=== PATIENT | male | born 1940 | race Caucasian/White ===

== ENCOUNTER → 2023-07-23 08:54 | Outpatient (REF) | payer MEDICARE, OTHER, SELFPAY ==
[2023-07-23 13:03] LABS: ALT (SGPT) 28 U/L (0-50); AST (SGOT) 25 U/L (17-59); Albumin 4.4 g/dl (3.5-5.0); Alkaline Phosphatase 61 U/L (38-126); Blood Urea Nitrogen 23 mg/dl (9-20); Calcium 9.4 mg/dl (8.4-10.2); Carbon Dioxide 27 mmol/L (22-30); Chloride 100 mmol/L (98-107); Glucose 252 mg/dl (70-99); HDL Cholesterol 42 mg/dl; LDL Cholesterol, Calculated 31 mg/dl; Potassium 4.3 mmol/L (3.5-5.1); Sodium 135 mmol/L (135-145); Total Cholesterol 89 mg/dl (50-199); Total Protein 7.1 g/dl (6.3-8.2); Triglyceride 84 mg/dl (10-149); Very Low Density Lipoprotein 16 mg/dl (0-30); eGFR > 60.00
[2023-07-23 14:17] LABS: Glycohemoglobin (HgbA1c) 10.3 % (4.0-5.6)
== END ==
LOC: HWLAB 08:54
PROVIDERS: ATTENDING PHYSICIAN Internal Medicine Endocrinology, Diabetes & Metabolism; FAMILY PHYSICIAN Family Medicine; REFERRING PHYSICIAN Internal Medicine Interventional Cardiology
DX: E11.9 Type 2 diabetes mellitus without complications (principal); I48.3 Typical atrial flutter; I25.10 Atherosclerotic heart disease of native coronary artery without angina pectoris
CPT/HCPCS: 36415; 80053; 80061; 83036

== ENCOUNTER → 2023-10-19 08:27 | Outpatient (REF) | payer MEDICARE, OTHER, SELFPAY ==
[2023-10-19 10:29] LABS: Microalbumin, Random Urine 3.8 mg/dl (0.6-1.7); Microalbumin/creatinine Ratio 105.3 mg/g
[2023-10-19 11:02] LABS: ALT (SGPT) 24 U/L (0-50); AST (SGOT) 26 U/L (17-59); Albumin 4.5 g/dl (3.5-5.0); Alkaline Phosphatase 58 U/L (38-126); Blood Urea Nitrogen 25 mg/dl (9-20); Calcium 9.7 mg/dl (8.4-10.2); Carbon Dioxide 28 mmol/L (22-30); Chloride 100 mmol/L (98-107); Glucose 193 mg/dl (70-99); Potassium 4.5 mmol/L (3.5-5.1); Sodium 138 mmol/L (135-145); Total Bilirubin 0.8 mg/dl (0.2-1.3); Total Protein 7.2 g/dl (6.3-8.2); eGFR > 60.00
[2023-10-19 11:26] LABS: Cortisol, Random 16.2 ug/dl
[2023-10-19 12:43] LABS: Glycohemoglobin (HgbA1c) 9.2 % (4.0-5.6)
[2023-10-20 15:08] LABS: IGF-1 Z Score Calculation 1.2; Insulin-like Growth Factor I 164 ng/mL (15-177)
[2023-10-20 23:59] LABS: C-Peptide 1.4 ng/mL (0.5-3.3)
== END ==
LOC: HWLAB 08:27
PROVIDERS: ATTENDING PHYSICIAN Internal Medicine Endocrinology, Diabetes & Metabolism; FAMILY PHYSICIAN Family Medicine
DX: E11.9 Type 2 diabetes mellitus without complications (principal); I10 Essential (primary) hypertension
CPT/HCPCS: 36415; 80053; 82043; 82533; 82570; 83036; 84305; 84681

== ENCOUNTER 2023-12-17 18:08 | Emergency (ER) | payer MEDICARE, OTHER, SELFPAY ==
[2023-12-17 18:12] VITALS: BP 153/80
[2023-12-17 18:26] LABS: % Basophils 0.5 % (0-2); % Eosinophils 6.1 % (0-6); % Immature Granulocytes 0.5 % (0-0.5); % Lymphocytes 13.9 % (20.5-51.1); Absolute Eosinophils 0.5 10^3/uL (0-0.7); Absolute Lymphocytes 1.2 10^3/uL (1.2-3.4); Absolute Neutrophils 5.9 10^3/uL (1.4-6.5); Hematocrit 35.4 % (39.0-52.0); Hemoglobin 11.9 g/dL (13.0-18.0); Mean Corp Hgb Conc. 33.6 g/dL (33.0-37.0); Mean Corpuscular Volume 83.3 fL (80.0-94.0); Nucleated Red Blood Cells % 0 % (-); Platelet Count 160 10^3/uL (130-400); Red Blood Cell Count 4.25 10^6/uL (4.70-6.10); Red Cell Dist. Width 13.5 % (11.5-14.5); White Blood Cell Count 8.7 10^3/uL (4.8-10.8)
[2023-12-17 18:37] LABS: Lactic Acid 2.5 mmol/L (0.7-2.0)
[2023-12-17 18:59] LABS: ALT (SGPT) 22 U/L (0-50); AST (SGOT) 27 U/L (17-59); Albumin 4.1 g/dl (3.5-5.0); Alkaline Phosphatase 75 U/L (38-126); Blood Urea Nitrogen 29 mg/dl (9-20); Calcium 9.4 mg/dl (8.4-10.2); Carbon Dioxide 19 mmol/L (22-30); Chloride 99 mmol/L (98-107); Glucose 153 mg/dl (70-99); Potassium 4.8 mmol/L (3.5-5.1); Sodium 133 mmol/L (135-145); Total Bilirubin 0.6 mg/dl (0.2-1.3); Total Protein 6.9 g/dl (6.3-8.2); eGFR 59.26
[2023-12-17 20:08] VITALS: BP 128/60
[2023-12-17] MEDS: TYLENOL 1000 MG PO (20:14)
[2023-12-17] MEDS: DUONEB 3 ML INH ×3 (20:14→22:09)
--- NOTE | 2023-12-17 20:58 | ED.GENMED ---
History of Present Illness
General
Chief Complaint: Cough
Source: patient and family
Exam Limitations: none
Time Seen by Provider: 12/17/23 19:39
History of Present Illness
History of Present Illness:
83-year-old male who presents with a cough. Today developed fevers. Was diagnosed with COVID last week. Has had several negative tests since Thursday. Patient spiked a fever last night and continued today. Also felt little bit off balance. Went
to the primary care doctor who sent him here for evaluation. Patient states he otherwise feels okay. Has been coughing up just clear sputum. No vomiting.
Past History
Past History
ED Past Medical History: Arrthythmia (A fib), GERD, HTN, Hypercholesterolemia, NIDDM and Other (History of diverticulitis, dysphasia, hemorrhoids, prostatic hypertrophy, arthritis, cataracts, bilateral hearing impairment); Negative CAD
ED Past Surgical History: Appendectomy and Other (Zenker's diverticulum resection, right inguinal hernia repair, hemorrhoidectomy, carpal tunnel repair, bilateral cataract surgery)
Social History
Tobacco: Non-smoker
Alcohol: None
Drug: None
Personal:
Living: with family
Employment: Retired
Family History
Family History: CAD
Phy Exam
Physical Exam
Physical Exam:
CONSTITUTIONAL Patient alert and oriented to person, place and time. Well-appearing. Vital signs reviewed. Febrile
HEAD atraumatic, normocephalic.
EYES eyelids normal to inspection,Extraocular muscles intact, Conjunctiva normal, Sclera normal.
NECK normal range of motion, Trachea midline, no jugular venous distention.
RESPIRATORY CHEST No respiratory distress noted, Chest expansion equal, poor air movement bilaterally.
CARDIOVASCULAR regular rate and rhythm, Heart sounds normal.
ABDOMEN abdomen nontender, Bowel sounds normal. No distention.
BACK normal inspection, no obvious deformities
UPPER EXTREMITY range of motion normal, Motor strength normal, no cyanosis, no edema.
LOWER EXTREMITY range of motion normal, Motor strength normal, no cyanosis, no edema.
NEURO Speech normal, No focal motor deficits, [place] coma scale 15, Memory normal, Cranial Nerves intact to screening exam.
SKIN skin warm, dry, and normal in color.
Course
Orders/Labs/Results
Orders:
Orders
12/17/23 18:13
CXR2 [CR Chest - 2 Views ] Urgent
Comment:
Reason For Exam: cough
12/17/23 18:19
CMP [Comprehensive Metabolic Panel] Urgent
Complete Blood Count/With Diff Urgent
Lactic Acid Urgent
12/17/23 20:08
Acetaminophen [Tylenol] 1,000 mg PO NOW STA
Ipratropium/Albuterol Sulfate [Duoneb] 3 ml INH R NOW STA
12/17/23 20:13
Ipratropium/Albuterol Sulfate [Duoneb] 3 ml .ROUTE .STK-MED ONE
12/17/23 21:53
LevoFLOXacin [Levaquin] 500 mg PO NOW STA
12/17/23 21:55
Ipratropium/Albuterol Sulfate [Duoneb] 3 ml INH R NOW ONE
Ipratropium/Albuterol Sulfate [Duoneb] 3 ml INH R NOW STA
Abnormal Lab Results
12/17/23
18:19
RBC 4.25 L 10^6/uL
(4.70-6.10)
Hgb 11.9 L g/dL
(13.0-18.0)
Hct 35.4 L %
(39.0-52.0)
Absolute Monos (auto) 1.0 H 10^3/uL
(0.1-0.6)
Lymphocytes % 13.9 L %
(20.5-51.1)
Monocytes % 11.0 H %
(1.7-9.3)
Eosinophils % 6.1 H %
(0-6)
Sodium 133 L mmol/L
(135-145)
Carbon Dioxide 19 L mmol/L
(22-30)
BUN 29 H mg/dl
(9-20)
Glucose 153 H mg/dl
(70-99)
Lactic Acid 2.5 H mmol/L
(0.7-2.0)
12/17/23 18:19
12/17/23 18:19
Vital Signs
Initial and Last Documented VS:
Initial Vital Signs
Temp Pulse Resp BP Pulse Ox
100.3 F 104 16 153/80 96
12/17/23 18:12 12/17/23 18:12 12/17/23 18:12 12/17/23 18:12 12/17/23 18:12
Last Documented Vital Signs
Temp Pulse Resp BP Pulse Ox
98.8 F 100 18 141/66 95
12/17/23 21:55 12/17/23 21:55 12/17/23 21:55 12/17/23 21:55 12/17/23 21:55
MDM/Problems Addressed
MDM/Problems Addressed:
Fever, cough
*Radiology
Radiology exam reviewed: radiology read reviewed and all reviewed NAD by ED Provider
*Pulse Oximetry
Patient hypoxic: no
*Critical Care Note
Total Time (30-74mins, 75-104mins- exclusive of procedures): Not Applicable
Data Reviewed
Source: patient and family
Further Testing Considered But Not Given:
Consider blood cultures but do not suspect bacteremia
Patient Management
Escalation/DeEscalation of care consider admission/obs:
Patient does appear well. Feels better after nebs. Pulse ox normal. Family aware to bring him back if any symptoms progress. Question whether he could have early pneumonia will cover with antibiotics given recent COVID infection. Okay for
discharge
ED Attending Note
-
Portions of this chart may have been created with voice recognition software.� Occasional wrong word or��sound alike� substitutions may have occurred due to the inherent limitations of voice recognition software.
Discharge Plan
Departure
Patient Disposition: Home (Routine Discharge)
Date of Disposition: 12/17/23
Time of Disposition: 22:00
Patient with high blood pressure during this ER visit?: No
Discharge Problem:
Fever, Cough
Instructions: Cough, Adult (DC)
Prescriptions:
New
levofloxacin 500 mg tablet
500 mg PO DAILY 7 Days Qty: 7 0RF
ipratropium-albuterol 0.5 mg-3 mg(2.5 mg base)/3 mL solution for nebulization
3 ml inhalation Q4H PRN (Reason: wheezing, cough) Qty: 90 0RF
No Action
ascorbic acid (vitamin C) [Vitamin C] 500 MG tablet
500 mg PO QPM
omeprazole [Prilosec] 10 MG capsule,delayed release(DR/EC)
20 mg PO DAILY
docosahexaenoic acid-epa 1 CAP capsule
1,200 cap PO DAILY@1200
metformin 500 MG tablet extended release 24 hr
1,000 mg PO BID
multivitamin with folic acid [Tab-A-Ena] 1 TABLET tablet
1 tab PO DAILY@1200
calcium carbonate-vitamin D3 1 EACH tablet
1 ea PO DAILY
isosorbide mononitrate 30 MG tablet extended release 24 hr
30 mg PO DAILY
losartan 25 MG tablet
25 mg PO DAILY
cyanocobalamin (vitamin B-12) 1,000 MCG tablet
1,000 mcg PO DAILY Qty: 30 0RF
acetaminophen [Tylenol] 325 mg Tablet
650 mg PO HS
Xarelto 20 mg Tablet
20 mg PO QPM
rosuvastatin 20 mg Tablet
20 mg PO DAILY
Systane (PF) 0.4-0.3 % Dropperette
1 drp OPHTHALMIC (EYE) HS
Rx Instructions:
one drop to both eyes
glimepiride 4 mg Tablet
4 mg PO DAILY
metoprolol succinate 25 mg Tablet Extended Release 24 Hr
25 mg PO DAILY Qty: 30 11RF
Referrals:
Augusto Baltazar MD [Family Provider] -
Activity Restrictions/Additional Instructions:
Please see your doctor in the next 2 to 3 days for follow-up and reevaluation peer return visit for difficulty breathing, changes in mentation, weakness of any kind or any other concerns. Please use Tylenol as discussed euenfl-tph-nuels to keep
fevers under control.
Interventions
Interventions:
*Risk Screen - Suicide Last Done: 12/17/23 21:16
*Neglect/Abuse Screening Last Done: 12/17/23 21:16
ED- Fall Risk Assessment Last Done: 12/17/23 21:16
*ED COVID-19 Vaccine History Last Done: 12/17/23 18:12
ED- Pulmonary Assessment Last Done: 12/17/23 21:16
Discharge Date and Time
Print Language: ANDORRAN
[2023-12-17 21:55] VITALS: BP 141/66
--- NOTE | 2023-12-17 22:00 | EDRN ---
Patient was resting and temp better, Dr. Kelley spoke with family, patient to be discharged home.
[2023-12-17] MEDS: LEVAQUIN 500 MG PO (22:09)
== END 2023-12-17 22:33 | disposition home or self-care (01) ==
LOC: EMR 18:08
PROVIDERS: Emergency Medicine; EMERGENCY PHYSICIAN Emergency Medicine; FAMILY PHYSICIAN Family Medicine
DX: R05.9 Cough, unspecified (principal); R50.9 Fever, unspecified; I48.91 Unspecified atrial fibrillation; K21.9 Gastro-esophageal reflux disease without esophagitis; I10 Essential (primary) hypertension; E78.00 Pure hypercholesterolemia, unspecified; E11.36 Type 2 diabetes mellitus with diabetic cataract; N40.0 Benign prostatic hyperplasia without lower urinary tract symptoms; Z82.49 Family history of ischemic heart disease and other diseases of the circulatory system; Z87.19 Personal history of other diseases of the digestive system; Z90.49 Acquired absence of other specified parts of digestive tract
CPT/HCPCS: 99284; 94640; 71046; 80053; 83605; 85025

== ENCOUNTER → 2023-12-24 15:00 | Outpatient (REF) | payer MEDICARE, OTHER, SELFPAY | LOC: HWRCS 15:00 | PROVIDERS: ATTENDING PHYSICIAN Internal Medicine Interventional Cardiology; FAMILY PHYSICIAN Family Medicine | DX: I35.0 Nonrheumatic aortic (valve) stenosis (principal) | CPT/HCPCS: 93306 ==

== ENCOUNTER 2024-02-09 11:31 | Emergency (ER) | payer MEDICARE, OTHER, SELFPAY ==
[2024-02-09] VITALS (29 sets, daily range): BP systolic 95–129; BP diastolic 60–92; BMI 24.3
--- NOTE | 2024-02-09 11:44 | ED.GENMED ---
History of Present Illness
<Abraham Kilgore PA-C - Last Filed: 02/09/24 14:39>
General
Chief Complaint: Dizziness
Source: patient
Exam Limitations: none
Time Seen by Provider: 02/09/24 11:38
History of Present Illness
History of Present Illness:
83-year-old male presents via EMS from home with complaints of feeling weak and tired. When asked how long has been going he is weeks. He is unsure why his called the ambulance today. He denies chest pain abdominal pain or shortness of
breath. He does have a history of atrial fibrillation. Medicine with does document Xarelto. He was on metoprolol 1 point but this was stopped about a month ago through the family doctor. No other complaints at this time
Past History
<Abraham Kilgore PA-C - Last Filed: 02/09/24 14:39>
Past History
ED Past Medical History: Arrthythmia (A fib), GERD, HTN, Hypercholesterolemia, NIDDM and Other (History of diverticulitis, dysphasia, hemorrhoids, prostatic hypertrophy, arthritis, cataracts, bilateral hearing impairment); Negative CAD
ED Past Surgical History: Appendectomy and Other (Zenker's diverticulum resection, right inguinal hernia repair, hemorrhoidectomy, carpal tunnel repair, bilateral cataract surgery)
Social History
Tobacco: Non-smoker
Alcohol: None
Drug: None
Personal:
Living: with family
Employment: Retired
Family History
Family History: CAD
Phy Exam
<NEELIMA Hall Last Filed: 02/09/24 14:39>
Physical Exam
Physical Exam:
General: Well-appearing male no acute respiratory distress
HEENT: Normocephalic atraumatic
Heart: Tachycardic and regular
Lungs: Clear no obvious wheeze
Extremities: No cyanosis or edema
Skin: Warm no rash
Course
<Abraham Kilgore PA-C - Last Filed: 02/09/24 14:39>
Orders/Labs/Results
Orders:
Orders
02/09/24 11:34
EKG [Electrocardiogram (*1)] Urgent
Reason for Study: Vertigo / Dizzy
02/09/24 11:35
EKG- Treatment ONCE
02/09/24 11:36
Complete Blood Count/With Diff Urgent
02/09/24 11:44
Diltiazem HCl [Cardizem] 10 mg IV NOW STA
02/09/24 11:45
Diltiazem 125 mg/125 ml Nss [Cardizem] 125 mg in 125 ml IV PER PROTOCOL
Initial dose in mg/hr, then titrate:: 5
Titrate to keep:: Heart rate 80-100 bpm
Titrate by mg/hr:: 5 mg/hr
Frequency of titrations (minutes):: 15
Maximum dose in mg/hr:: 15
02/09/24 11:46
CR Chest Portable - 1 View Urgent
Comment:
Reason For Exam: fatigue
Reason Study Needs to be Portable: Patient Unstable
02/09/24 11:47
Add On- LAB Urgent
Tests Added?: tsh reflex to free t4
02/09/24 12:32
Comprehensive Metabolic Panel Urgent
TSH Reflex To Free T4 Urgent
Comment: ADD
Urinalysis Reflex To Culture Urgent
Date Specimen was Collected: 02/09/24
Time Specimen was Collected: 12:31
02/09/24 12:40
Propofol [Diprivan] 20 ml .ROUTE .STK-MED
02/09/24 12:59
EKG [Electrocardiogram (*1)] Urgent
Reason for Study: Other
Other Reason for Exam: post cardioversion
02/09/24 13:00
EKG- Treatment ONCE
Abnormal Lab Results
02/09/24 02/09/24
11:36 12:32
RBC 4.13 L 10^6/uL
(4.70-6.10)
Hgb 11.5 L g/dL
(13.0-18.0)
Hct 34.9 L %
(39.0-52.0)
RDW 19.2 H %
(11.5-14.5)
MPV 12.0 H fL
(7.4-10.4)
Abs Immat Gran (auto) 0.1 H 10^3/uL
(0-0.05)
Absolute Lymphs (auto) 1.1 L 10^3/uL
(1.2-3.4)
Absolute Monos (auto) 0.7 H 10^3/uL
(0.1-0.6)
Absolute Eos (auto) 0.9 H 10^3/uL
(0-0.7)
Immature Gran % 0.7 H %
(0-0.5)
Lymphocytes % 14.4 L %
(20.5-51.1)
Eosinophils % 12.4 H %
(0-6)
BUN 21 H mg/dl
(9-20)
Glucose 280 H mg/dl
(70-99)
Urine Glucose 3+ A
(Negative)
02/09/24 11:36
02/09/24 12:32
Vital Signs
Initial and Last Documented VS:
Initial Vital Signs
Pulse Ox
92
02/09/24 11:40
Last Documented Vital Signs
Temp Pulse Resp BP Pulse Ox
98.1 F 80 16 119/70 95
02/09/24 13:22 02/09/24 14:07 02/09/24 14:07 02/09/24 14:07 02/09/24 14:07
<Lionel Champion MD - Last Filed: 02/09/24 13:38>
Orders/Labs/Results
Orders:
Orders
02/09/24 11:34
EKG [Electrocardiogram (*1)] Urgent
Reason for Study: Vertigo / Dizzy
02/09/24 11:35
EKG- Treatment ONCE
02/09/24 11:36
Complete Blood Count/With Diff Urgent
02/09/24 11:44
Diltiazem HCl [Cardizem] 10 mg IV NOW STA
02/09/24 11:45
Diltiazem 125 mg/125 ml Nss [Cardizem] 125 mg in 125 ml IV PER PROTOCOL
Initial dose in mg/hr, then titrate:: 5
Titrate to keep:: Heart rate 80-100 bpm
Titrate by mg/hr:: 5 mg/hr
Frequency of titrations (minutes):: 15
Maximum dose in mg/hr:: 15
02/09/24 11:46
CR Chest Portable - 1 View Urgent
Comment:
Reason For Exam: fatigue
Reason Study Needs to be Portable: Patient Unstable
02/09/24 11:47
Add On- LAB Urgent
Tests Added?: tsh reflex to free t4
02/09/24 12:32
Comprehensive Metabolic Panel Urgent
TSH Reflex To Free T4 Urgent
Comment: ADD
Urinalysis Reflex To Culture Urgent
Date Specimen was Collected: 02/09/24
Time Specimen was Collected: 12:31
02/09/24 12:40
Propofol [Diprivan] 20 ml .ROUTE .STK-MED
02/09/24 12:59
EKG [Electrocardiogram (*1)] Urgent
Reason for Study: Other
Other Reason for Exam: post cardioversion
02/09/24 13:00
EKG- Treatment ONCE
Abnormal Lab Results
02/09/24 02/09/24
11:36 12:32
RBC 4.13 L 10^6/uL
(4.70-6.10)
Hgb 11.5 L g/dL
(13.0-18.0)
Hct 34.9 L %
(39.0-52.0)
RDW 19.2 H %
(11.5-14.5)
MPV 12.0 H fL
(7.4-10.4)
Abs Immat Gran (auto) 0.1 H 10^3/uL
(0-0.05)
Absolute Lymphs (auto) 1.1 L 10^3/uL
(1.2-3.4)
Absolute Monos (auto) 0.7 H 10^3/uL
(0.1-0.6)
Absolute Eos (auto) 0.9 H 10^3/uL
(0-0.7)
Immature Gran % 0.7 H %
(0-0.5)
Lymphocytes % 14.4 L %
(20.5-51.1)
Eosinophils % 12.4 H %
(0-6)
BUN 21 H mg/dl
(9-20)
Glucose 280 H mg/dl
(70-99)
Urine Glucose 3+ A
(Negative)
02/09/24 11:36
02/09/24 12:32
Vital Signs
Initial and Last Documented VS:
Initial Vital Signs
Pulse Ox
92
02/09/24 11:40
Last Documented Vital Signs
Temp Pulse Resp BP Pulse Ox
98.1 F 80 16 119/70 95
02/09/24 13:22 02/09/24 14:07 02/09/24 14:07 02/09/24 14:07 02/09/24 14:07
Procedures
<Abraham Kilgore PA-C - Last Filed: 02/09/24 14:39>
Moderate Sedation
ASA Risk Score: Class II
Chart and allergies reviewed: Yes
Consent for anesthesia obtained: Yes
Time out completed (validating right patient & procedure): Yes
Moderate Sedation Start Time(when first medication is given): 12:57
History of difficult intubation: No
Airway free of obstruction: Yes
Patient has a gag reflex: Yes
Patient is able to open mouth: Yes
Patient has no dentures: Yes
Patient has no loose teeth: Yes
Medication administered by Provider during Moderate Sedation: IV Propofol (mg)
Total dose administered: 40
Time drug administered: 12:57
Moderate Sedation Procedure End Time: 13:08
<Abraham Kilgore PA-C - Last Filed: 02/09/24 14:39>
MDM/Problems Addressed
Differential Diagnosis Includes:
Weakness and generalized fatigue. No localizing findings on exam other than atrial fibrillation. EKG shows A-fib with a heart rate of 147. His beta-malcom was recently discontinued. Will attempt rate control initially with Cardizem bolus and
infusion
Check labs.
<Abraham Kilgore PA-C - Last Filed: 02/09/24 14:39>
*Critical Care Note
Total Time (30-74mins, 75-104mins- exclusive of procedures): Not Applicable
<Abraham Kilgore PA-C - Last Filed: 02/09/24 14:39>
Update Note
Update Note:
Spoke with patient's son who provided more history. He believes that his father became more weak within the past 2 days he was doing well over the weekend. He has been taking his Xarelto without missing any doses. Discussed findings with
emergency room attending as well as reach out to cardiology for recommendation. Patient may be a candidate for cardioversion
Cardiology did recommend cardioversion. Written consent obtained. Sedation performed by emergency room attending. Patient was given 40 mg of propofol and cardioverted with 200 J. 1 attempt was required to return the patient back to a sinus
rhythm. He recovered well from anesthesia and was back on his feet. Family states that he is back to himself. No significant abnormalities in the blood work noted otherwise. Stable for discharge
ED Attending Note
<Abraham Kilgore PA-C - Last Filed: 02/09/24 14:39>
-
Portions of this chart may have been created with voice recognition software.� Occasional wrong word or��sound alike� substitutions may have occurred due to the inherent limitations of voice recognition software.
<Lionel Champion MD - Last Filed: 02/09/24 13:38>
ED Attending Note
Patient seen and examined by attending physician: Yes
ED Attending Note:
Physical Exam
General: no apparent distress, not acutely ill. afebrile
Head: nc/at. eomi
Neck: supple. no meningeal signs.
Heart: irregularly irregular, tachycardic,
Lungs: no acute respiratory distress. clear bilaterally
Abdomen: normal bowel sounds. not tender.
Neuro: alert and oriented. no focal neurological deficits
Skin: no rash
Psychiatric: well kept. interactive and cooperative
Extremities: no edema. no calf tenderness.
History and exam consistent with likely symptoms related to rapid atrial fibrillation. Patient initially started on Cardizem bolus and infusion, without jewish of normal sinus rhythm. After discussion with on-call cardiology, Dr. Bustamante
Cinthya, decision made to perform cardioversion in ED. Procedural consent on the chart.
Cardioversion successful, confirmed via repeat EKG.
Patient evaluated at bedside by Dr. Mendes, cardiology afterwards.
Discharge Plan
Departure
Patient Disposition: Home (Routine Discharge)
Date of Disposition: 02/09/24
Time of Disposition: 14:38
Patient with high blood pressure during this ER visit?: No
Discharge Problem:
Atrial flutter with rapid ventricular response
Instructions: Atrial fibrillation, MODERATE SEDATION ADULT
Prescriptions:
No Action
ascorbic acid (vitamin C) [Vitamin C] 500 MG tablet
500 mg PO QPM
omeprazole [Prilosec] 10 MG capsule,delayed release(DR/EC)
20 mg PO DAILY
docosahexaenoic acid-epa 1 CAP capsule
1,200 cap PO DAILY@1200
metformin 500 MG tablet extended release 24 hr
1,000 mg PO BID
multivitamin with folic acid [Tab-A-Ena] 1 TABLET tablet
1 tab PO DAILY@1200
calcium carbonate-vitamin D3 1 EACH tablet
1 ea PO DAILY
isosorbide mononitrate 30 MG tablet extended release 24 hr
30 mg PO DAILY
cyanocobalamin (vitamin B-12) 1,000 MCG tablet
1,000 mcg PO DAILY Qty: 30 0RF
acetaminophen [Tylenol] 325 mg Tablet
650 mg PO HS
Xarelto 20 mg Tablet
20 mg PO QPM
rosuvastatin 20 mg Tablet
20 mg PO DAILY
Systane (PF) 0.4-0.3 % Dropperette
1 drp OPHTHALMIC (EYE) HS
Rx Instructions:
one drop to both eyes
ipratropium-albuterol 0.5 mg-3 mg(2.5 mg base)/3 mL solution for nebulization
3 ml inhalation Q4H PRN (Reason: wheezing, cough) Qty: 90 0RF
memantine 10 mg Tablet
10 mg PO BID
Novolin 70-30 FlexPen U-100 100 unit/mL (70-30) Insulin Pen
30 unit SC DAILY
Referrals:
Augusto Baltazar MD [Family Provider] -
Activity Restrictions/Additional Instructions:
Please continue current medication regimen. Return here for worsening symptoms otherwise follow-up with your manager library
Interventions
Interventions:
*Risk Screen - Suicide Last Done: 02/09/24 11:40
*General Assessment Last Done: 02/09/24 11:40
*Neglect/Abuse Screening Last Done: 02/09/24 11:40
ED- Fall Risk Assessment Last Done: 02/09/24 11:40
*ED COVID-19 Vaccine History Last Done: 02/09/24 11:40
ED- Cardiac Assessment Last Done: 02/09/24 11:40
ED- Neurological Assessment Last Done: 02/09/24 11:40
ED Swallowing Screen Last Done: 02/09/24 11:40
Discharge Date and Time
Print Language: FINNISH
[2024-02-09] MEDS: CARDIZEM 10 MG IV (11:49)
[2024-02-09] MEDS: CARDIZEM 125 IV (11:49)
[2024-02-09 11:53] LABS: % Basophils 0.5 % (0-2); % Eosinophils 12.4 % (0-6); % Immature Granulocytes 0.7 % (0-0.5); % Lymphocytes 14.4 % (20.5-51.1); % Monocytes 8.8 % (1.7-9.3); % Neutrophils 63.2 % (42.2-75.2); Absolute Eosinophils 0.9 10^3/uL (0-0.7); Absolute Immature Granulocytes 0.1 10^3/uL (0-0.05); Absolute Lymphocytes 1.1 10^3/uL (1.2-3.4); Absolute Monocytes 0.7 10^3/uL (0.1-0.6); Absolute Neutrophils 4.7 10^3/uL (1.4-6.5); Hematocrit 34.9 % (39.0-52.0); Hemoglobin 11.5 g/dL (13.0-18.0); Mean Corpuscular Hgb 27.8 pg (27.0-31.0); Mean Corpuscular Volume 84.5 fL (80.0-94.0); Nucleated Red Blood Cells % 0 % (-); Platelet Count 161 10^3/uL (130-400); Red Blood Cell Count 4.13 10^6/uL (4.70-6.10); Red Cell Dist. Width 19.2 % (11.5-14.5); White Blood Cell Count 7.5 10^3/uL (4.8-10.8)
--- NOTE | 2024-02-09 11:59 | EDRN ---
cardizem bolus administered and gtt initiated per Zohaib Kilgore's orders, the pt is resting in stretcher in the lowest position, side rails up x2, call watkins within reach, HOB elevated, the pt is in Afib in the 130's currently, last BP 116/70 (83),
RA Sp02 92-96%, no s/s of distress currently, the pt stated that he is angry that he is here, this RN attempted to calm the pt down, will continue to monitor the pt closely
--- NOTE | 2024-02-09 12:54 | EDRN ---
cardizem gtt stopped per Dr. Champion and Zohaib WELLS, the pt was set up for a cardioversion
[2024-02-09 12:55] LABS: Urine Albumin Negative (Neg - Trace); Urine Bilirubin Negative (Negative); Urine Character Clear (Clear); Urine Color Yellow; Urine Glucose 3+ (Negative); Urine Ketone Negative (Negative); Urine Leukocyte Negative (Negative); Urine Nitrite Negative (Negative); Urine Occult Blood Negative (Negative); Urine Urobilinogen Negative (Neg - 1+)
[2024-02-09 13:13] LABS: ALT (SGPT) 18 U/L (0-50); AST (SGOT) 22 U/L (17-59); Albumin 3.7 g/dl (3.5-5.0); Alkaline Phosphatase 56 U/L (38-126); Blood Urea Nitrogen 21 mg/dl (9-20); Calcium 9.1 mg/dl (8.4-10.2); Carbon Dioxide 29 mmol/L (22-30); Chloride 100 mmol/L (98-107); Estimated Creatinine Clearance 66 ml/min; Glucose 280 mg/dl (70-99); Potassium 4.6 mmol/L (3.5-5.1); Sodium 136 mmol/L (135-145); Total Bilirubin 0.7 mg/dl (0.2-1.3); Total Protein 6.3 g/dl (6.3-8.2); eGFR > 60.00
--- NOTE | 2024-02-09 13:29 | EDRN ---
the pt is resting in stretcher in the lowest position, side rails up x2, call watkins within reach, HOB elevated, VS WNL, no s/s of distress, the pt is being monitored by this RN post conscious sedation post cardioversion, the pts is currently at
the pts bedside, the pts son was updated, will continue to monitor the pt closely
--- NOTE | 2024-02-09 13:35 | EDRN ---
Dr. Mendes currently at the pts bedside
[2024-02-09 13:44] LABS: TSH Reflex To Free T4 1.64 uIU/ml (0.47-4.68)
--- NOTE | 2024-02-09 14:45 | EDRN ---
the pt was able to eat and drink with no c/o N/V, the pt was able to stand from a sitting position unaided and the pt was able to ambulate to the bathroom without assistance, discharge instructions were given to the pt, the pts , and the pts
daughter in law, the pt was taken to his daughter in laws car via w/c
== END 2024-02-09 14:56 | disposition home or self-care (01) ==
LOC: EMR 11:31
PROVIDERS: Physician Assistant; EMERGENCY PHYSICIAN Emergency Medicine; FAMILY PHYSICIAN Family Medicine
DX: R53.1 Weakness (principal); R53.83 Other fatigue; I48.92 Unspecified atrial flutter; I10 Essential (primary) hypertension; I48.91 Unspecified atrial fibrillation; E78.00 Pure hypercholesterolemia, unspecified; E11.36 Type 2 diabetes mellitus with diabetic cataract; K21.9 Gastro-esophageal reflux disease without esophagitis; N40.0 Benign prostatic hyperplasia without lower urinary tract symptoms; M19.90 Unspecified osteoarthritis, unspecified site; K57.92 Diverticulitis of intestine, part unspecified, without perforation or abscess without bleeding; H91.90 Unspecified hearing loss, unspecified ear; Z79.01 Long term (current) use of anticoagulants; Z98.0 Intestinal bypass and anastomosis status; Z91.018 Allergy to other foods; Z91.010 Allergy to peanuts; Z91.048 Other nonmedicinal substance allergy status
CPT/HCPCS: 92960; 99285; 96365; 99152; 71045; 80053; 81003; 84443; 85025; 93005

== ENCOUNTER → 2024-02-29 08:28 | Outpatient (REF) | payer MEDICARE, OTHER, SELFPAY ==
[2024-02-29 10:33] LABS: Glycohemoglobin (HgbA1c) 7.6 % (4.0-5.6)
[2024-02-29 11:25] LABS: ALT (SGPT) 25 U/L (0-50); AST (SGOT) 23 U/L (17-59); Albumin 4.1 g/dl (3.5-5.0); Alkaline Phosphatase 65 U/L (38-126); Blood Urea Nitrogen 17 mg/dl (9-20); Calcium 9.2 mg/dl (8.4-10.2); Carbon Dioxide 22 mmol/L (22-30); Chloride 103 mmol/L (98-107); Glucose 225 mg/dl (70-99); Potassium 4.4 mmol/L (3.5-5.1); Sodium 139 mmol/L (135-145); Total Bilirubin 0.9 mg/dl (0.2-1.3); Total Protein 6.6 g/dl (6.3-8.2); eGFR > 60.00
== END ==
LOC: REG 08:28
PROVIDERS: ATTENDING PHYSICIAN Internal Medicine Endocrinology, Diabetes & Metabolism; FAMILY PHYSICIAN Family Medicine
DX: E11.9 Type 2 diabetes mellitus without complications (principal)
CPT/HCPCS: 36415; 80053; 82943; 83036

== ENCOUNTER → 2024-06-21 10:23 | Outpatient (REF) | payer MEDICARE, OTHER, SELFPAY ==
[2024-06-21 13:17] LABS: ALT (SGPT) 15 U/L (0-50); AST (SGOT) 21 U/L (17-59); Albumin 4.2 g/dl (3.5-5.0); Alkaline Phosphatase 58 U/L (38-126); Blood Urea Nitrogen 21 mg/dl (9-20); Calcium 9.2 mg/dl (8.4-10.2); Carbon Dioxide 29 mmol/L (22-30); Chloride 97 mmol/L (98-107); Glucose 203 mg/dl (70-99); Potassium 4.1 mmol/L (3.5-5.1); Sodium 135 mmol/L (135-145); Total Bilirubin 0.9 mg/dl (0.2-1.3); Total Protein 6.8 g/dl (6.3-8.2); eGFR > 60.00
== END ==
LOC: OLABWIL 10:23
PROVIDERS: ATTENDING PHYSICIAN Internal Medicine Endocrinology, Diabetes & Metabolism
DX: E11.65 Type 2 diabetes mellitus with hyperglycemia (principal)
CPT/HCPCS: 36415; 80053; 83036

== ENCOUNTER → 2024-12-14 15:41 | Outpatient (REF) | payer MEDICARE, OTHER, SELFPAY | LOC: HWRAD 15:41 | PROVIDERS: ATTENDING PHYSICIAN Family Medicine | DX: R05.1 Acute cough (principal) | CPT/HCPCS: 71046 ==

== ENCOUNTER 2025-03-12 16:23 | Inpatient (IN) | payer MEDICARE, OTHER, SELFPAY ==
[2025-03-12] VITALS (18 sets, daily range): BP systolic 107–162; BP diastolic 72–113; BMI 26.5; BMI 25.2
[2025-03-12 12:05] LABS: Hematocrit 35.4 % (39.0-52.0); Hemoglobin 11.4 g/dL (13.0-18.0); Mean Corp Hgb Conc. 32.2 g/dL (33.0-37.0); Mean Corpuscular Volume 81.8 fL (80.0-94.0); Nucleated Red Blood Cells % 0 % (-); Platelet Count 175 10^3/uL (130-400); Red Cell Dist. Width 18.7 % (11.5-14.5)
[2025-03-12 12:25] LABS: COVID-19 Antigen Negative (Negative)
--- NOTE | 2025-03-12 12:41 | ED.GENMED ---
History of Present Illness
General
Chief Complaint: Weakness
Source: patient and family (Son)
Time Seen by Provider: 03/12/25 11:22
History of Present Illness
History of Present Illness:
History from patient and son. Son adds patient was in his normal state of health. Lives independently but with assistance. Was doing well yesterday. Found on the floor this morning. Ambulance was called which assisted him back to bed. On son's
arrival patient appeared unusually weak and not himself. Patient does not had any specific complaints except for some mild cough. No chest pain denies shortness of breath no fever no urinary symptoms.
Past History
Past History
ED Past Medical History: Arrthythmia (A fib), GERD, HTN, Hypercholesterolemia, NIDDM and Other (History of diverticulitis, dysphasia, hemorrhoids, prostatic hypertrophy, arthritis, cataracts, bilateral hearing impairment); Negative CAD
ED Past Surgical History: Appendectomy and Other (Zenker's diverticulum resection, right inguinal hernia repair, hemorrhoidectomy, carpal tunnel repair, bilateral cataract surgery)
Social History
Tobacco: Non-smoker
Alcohol: None
Drug: None
Personal:
Living: with family
Employment: Retired
Family History
Family History: CAD
Review of Systems
Review of Systems
All Other Systems: Not applicable
Constitutional: Denies fever
Cardiac: Denies chest pain or syncope
ABD/GI: Denies abdominal pain
Phy Exam
Physical Exam
Physical Exam:
GENERAL: Elderly and frail. Alert. Mildly hypoxic on room air. Although no respiratory distress. Normocephalic atraumatic
EYE: Orbits normal.
NECK: Supple, no significant adenopathy.
ENT: Pharynx without erythema
CARDIAC: Irregular irregular. Tachycardic
LUNGS: No respiratory distress however low pulse ox and rales in the left base
ABDOMEN: Soft, without focal tenderness or distention
NEUROLOGICAL: Alert and oriented , grossly non-focal
SKIN: Warm and dry, no rash or lesion, no discoloration, skin intact.
MUSCULOSKELETAL: No edema,no deformity.Good color
PSYCH: Normal and appropriate interaction.
Course
Orders/Labs/Results
Orders:
Orders
03/12/25 11:21
Electrocardiogram (*1) Urgent
Reason for Study: Atrial Fibrillation
EKG- Treatment ONCE
03/12/25 11:36
IV Insert/Care/Rem.- Treatment PRN
Urinalysis Reflex To Culture Urgent
Date Specimen was Collected: 03/12/25
Time Specimen was Collected: 13:49
Urine Microscopic Reflex Cult Urgent
Urine Culture Urgent
DARRELL Source: U
Specimen Description:
Date Specimen was Collected: 03/12/25
Time Specimen was Collected: 13:49
Pulse Ox/cont/shift [RESP] Stat
Quantity: 1
03/12/25 11:37
Cardiac Monitoring- Treatment ONCE
CR Chest - 2 Views Urgent
Comment:
Reason For Exam: Weak/rales left base
03/12/25 11:53
COVID-19 Antigen Urgent
Source: Nasal Swab
Complete Blood Count/With Diff Urgent
Comprehensive Metabolic Panel Urgent
Creatine Phosphokinase Urgent
Comment: ADD ON
NT-proBNP Urgent
Troponin I Urgent
Influenza A+B Rapid Molecular Urgent
DARRELL Source: Nasal Swab
Specimen Description:
03/12/25 12:12
CT Head W/o Iv Contrast Urgent
Comment:
Reason For Exam: Fall/anticoagulated
Diltiazem 125 mg/125 ml Nss [Cardizem] 125 mg in 125 ml IV NOW
Initial dose in mg/hr, then titrate:: 5
Titrate to keep:: Heart rate 80-100 bpm
Titrate by mg/hr:: 5 mg/hr
Frequency of titrations (minutes):: 15
Maximum dose in mg/hr:: 15
Diltiazem HCl [Cardizem] 5 mg IV NOW STA
03/12/25 12:53
Lactate Level [Lactic Acid] Urgent
03/12/25 12:54
Blood Culture Q30M
DARRELL Source: Blood/Venous
Specimen Description:
Blood Culture Q30M
DARRELL Source: Blood/Venous
Specimen Description:
03/12/25 14:10
Add On- LAB Urgent
Tests Added?: cpk
03/12/25 14:38
Cefepime HCl [Maxipime] 2,000 mg IV NOW STA
Abnormal Lab Results
03/12/25 03/12/25 03/12/25
11:36 11:53 12:53
WBC 19.3 H 10^3/uL
(4.8-10.8)
RBC 4.33 L 10^6/uL
(4.70-6.10)
Hgb 11.4 L g/dL
(13.0-18.0)
Hct 35.4 L %
(39.0-52.0)
MCH 26.3 L pg
(27.0-31.0)
MCHC 32.2 L g/dL
(33.0-37.0)
RDW 18.7 H %
(11.5-14.5)
Abs Immat Gran (auto) 0.3 H 10^3/uL
(0-0.05)
Absolute Neuts (auto) 17.8 H 10^3/uL
(1.4-6.5)
Absolute Lymphs (auto) 0.4 L 10^3/uL
(1.2-3.4)
Absolute Monos (auto) 0.7 H 10^3/uL
(0.1-0.6)
Immature Gran % 1.6 H %
(0-0.5)
Neutrophils % 92.1 H %
(42.2-75.2)
Lymphocytes % 2.2 L %
(20.5-51.1)
Carbon Dioxide 21 L mmol/L
(22-30)
Glucose 276 H mg/dl
(70-99)
Lactic Acid 3.3 H mmol/L
(0.7-2.0)
Total Bilirubin 1.8 H mg/dl
(0.2-1.3)
Troponin I 0.048 H* ng/ml
Leukocyte Esterase Rfl 1+ A
(Negative)
Urine Bacteria (Reflex) Moderate A
(Negative)
Urine Glucose 2+ A
(Negative)
Urine Albumin (Reflex) 2+ A
(Neg - Trace)
03/12/25 11:53
03/12/25 11:53
Vital Signs
Initial and Last Documented VS:
Initial Vital Signs
Temp Pulse Resp BP Pulse Ox
98.7 F 144 16 139/86 89
03/12/25 11:16 03/12/25 11:16 03/12/25 11:16 03/12/25 11:16 03/12/25 11:16
Last Documented Vital Signs
Temp Pulse Resp BP Pulse Ox
98.7 F 99 26 136/99 93
03/12/25 11:16 03/12/25 14:46 03/12/25 14:46 03/12/25 14:46 03/12/25 14:46
MDM/Problems Addressed
Differential Diagnosis Includes:
Patient weak, A-fib RVR, leukocytosis. Infection with secondary RVR versus primary or RVR. Also consider heart failure. Awaiting chest x-ray head CT urinalysis. Discussed with cardiology. Will start gentle rate control. Clearly warrants
admission
*Radiology
Radiology exam reviewed: preliminary read by ED provider (Left perihilar pneumonia) and radiology read reviewed (Bilateral pneumonia versus heart failure)
*Pulse Oximetry
SaO2: 89
Oxygen Mode of Delivery: Room air
Patient hypoxic: yes
*Super[employer] Interpretation
Rate: tachycardiac
Interpretation: abnormal
Heart Rate: 142
Rhythm: a-fib
*Critical Care Note
Total Time (30-74mins, 75-104mins- exclusive of procedures): 40
Data Reviewed
Review of Other/Old Records Reveals: Labs, Records, Radiology Studies and Testing
Update Note
Update Note:
Multiple rechecks of this patient. Ammonia versus heart failure with A-fib RVR versus both. Antibiotics given. Rate control given. Will hold on diuretics at this time. Discussed with family. Discussed with cardiology earlier
ED Attending Note
-
Portions of this chart may have been created with voice recognition software.� Occasional wrong word or��sound alike� substitutions may have occurred due to the inherent limitations of voice recognition software.
Discharge Plan
Departure
Patient Disposition: Admit
Date of Disposition: 03/12/25
Time of Disposition: 14:40
Presentation/result/management discussed w/ accepting MD/DO: Hospitalist
Discharge Problem:
Atrial fibrillation/RVR, Pneumonia, CHF
Prescriptions:
No Action
ascorbic acid (vitamin C) [Vitamin C] 500 MG tablet
500 mg PO QPM
omeprazole [Prilosec] 10 MG capsule,delayed release(DR/EC)
20 mg PO DAILY
docosahexaenoic acid-epa 1 CAP capsule
1,200 cap PO DAILY@1200
metformin 500 MG tablet extended release 24 hr
1,000 mg PO BID
multivitamin with folic acid [Tab-A-Ena] 1 TABLET tablet
1 tab PO DAILY@1200
calcium carbonate-vitamin D3 1 EACH tablet
1 ea PO DAILY
isosorbide mononitrate 30 MG tablet extended release 24 hr
30 mg PO DAILY
cyanocobalamin (vitamin B-12) 1,000 MCG tablet
1,000 mcg PO DAILY Qty: 30 0RF
acetaminophen [Tylenol] 325 mg Tablet
650 mg PO HS
Xarelto 20 mg Tablet
20 mg PO QPM
rosuvastatin 20 mg Tablet
20 mg PO DAILY
Systane (PF) 0.4-0.3 % Dropperette
1 drp OPHTHALMIC (EYE) HS
Rx Instructions:
one drop to both eyes
ipratropium-albuterol 0.5 mg-3 mg(2.5 mg base)/3 mL solution for nebulization
3 ml inhalation Q4H PRN (Reason: wheezing, cough) Qty: 90 0RF
memantine 10 mg Tablet
10 mg PO BID
Novolin 70-30 FlexPen U-100 100 unit/mL (70-30) Insulin Pen
30 unit SC DAILY
triamcinolone acetonide 0.5 % ointment
1 applic topical BID Qty: 90 0RF
Referrals:
Priscilla Capellan MD [Family Provider, Family Practice]
Interventions
Interventions:
*Risk Screen - Suicide Last Done: 03/12/25 12:00
*General Assessment Last Done: 03/12/25 14:41
*Neglect/Abuse Screening Last Done: 03/12/25 14:41
*ED COVID-19 Vaccine History Last Done: 03/12/25 14:58
*ED Influenza Vaccine History Last Done: 03/12/25 14:58
ED- Cardiac Assessment Last Done: 03/12/25 14:41
ED- Neurological Assessment Last Done: 03/12/25 14:41
ED- Pulmonary Assessment Last Done: 03/12/25 14:41
Discharge Date and Time
Print Language: [place]LAND[place]
[2025-03-12 12:42] LABS: AST (SGOT) 27 U/L (17-59); Albumin 4.1 g/dl (3.5-5.0); Alkaline Phosphatase 54 U/L (38-126); Blood Urea Nitrogen 16 mg/dl (9-20); Calcium 9.1 mg/dl (8.4-10.2); Carbon Dioxide 21 mmol/L (22-30); Chloride 104 mmol/L (98-107); Glucose 276 mg/dl (70-99); Potassium 4.3 mmol/L (3.5-5.1); Sodium 136 mmol/L (135-145); Total Protein 6.9 g/dl (6.3-8.2); eGFR > 60.00
[2025-03-12 12:51] LABS: ALT (SGPT) 26 U/L (0-50); Troponin I 0.048 ng/ml
[2025-03-12] MEDS: CARDIZEM 5 MG IV (13:16)
[2025-03-12] MEDS: CARDIZEM 125 IV (13:16)
[2025-03-12 14:21] LABS: Urine Character Slightly Cloudy (Clear)
[2025-03-12 14:43] LABS: Urine Red Blood Cell 0-2 /HPF (0-2); Urine Squamous Cell 0-2 /LPF (Few)
--- NOTE | 2025-03-12 14:57 | HPS.HSE ---
Addendum entered and electronically signed by Phuong Lyle MD 03/12/25 16:19:
This is an addendum to H&P written by Nelda Amato on 03/12/2025. �Patient seen and examined independently with MANUFACTURING ANALYST.
85-year-old male past medical history of atrial fibrillation on Xarelto, CAD, aortic stenosis status post TAVR 2 years ago, CVA, hypertension, hypercholesteremia, GERD, diabetes, BPH, arthritis, bilateral hearing impairment, cataracts, Zenker's
diverticulum, hemorrhoids, presenting with 1 week of cough with blood-tinged sputum. �Today found on the floor unknown duration with weakness and somnolence.
Hypoxic to 89% requiring 2 L oxygen. �Found to be in atrial fibrillation with RVR with heart rate of 146. �Blood pressure normal.
Labs show leukocytosis of 19. �Stable anemia 11. �Lactic acid 3.3. �Troponin 0.048. �Cardiac BNP of 6300. �Blood sugar of 276. �COVID and flu negative.
Chest x-ray shows severe perihilar ground glass opacities in the left midlung and moderate infrahilar ground glass opacity in the right lung B acute alveolar pulm edema or bilateral pneumonia. �Moderate cardiomegaly. �Prior TAVR. �CT head shows
small chronic infarcts in both cerebral hemispheres.
Patient with sepsis secondary to community-acquired pneumonia. �Check sputum culture, blood cultures. �Avoid IV fluids due to history of congestive heart failure cardiac BNP of 6300. �Cefepime/doxycycline. �Trend lactate.
Patient with atrial fibrillation with RVR. �Cardizem drip started. �Nonischemic myocardial injury. �Trend troponins. �Check echocardiogram. �Cardiology consulted.
Original Note:
Family Physician
-
Family Physician: Priscilla Capellan MD
Chief Complaint
-
Weakness, hypoxia, A-fib with RVR
History of Present Illness
85-year-old male lives independently with some assistance who was found on the floor this morning and the ambulance assisted him back to bed. On son's arrival patient appeared weak and not himself. He had a mild cough for the past week with some
scattered blood and sputum. The patient is very lethargic sleeping in bed currently. When awoken the patient denies fever, headache, sore throat, chest pain, palpitations, shortness of breath abdominal pain, nausea, vomiting, diarrhea, urinary
symptoms. He was noted to be in rapid A-fib with RVR heart rate 146 bpm hypoxic at 89% on room air with leukocytosis.
He has past medical history paroxysmal A-fib with RVR, TAVR/severe aortic stenosis 2018, bilateral lacunar CVAs by MRI 08/19/2019, CAD status post cath 2018, HTN, DM2, HLD, GERD, BPH, Zenker's diverticulum resection in 1990, hemorrhoids,Chronic
ambulatory dysfunction uses rollator at baseline
Medical History
Past Medical History
Past Medical History: Reports Other (atrial fibrillation on Xarelto, coronary artery disease, aortic stenosis status post TAVR 3 years ago, CVA, hypertension, hypercholesterolemia, GERD, diabetes, BPH, arthritis, bilateral hearing impairment,
cataracts, Zenker's diverticulum, hemorrhoids, )
Additional Past Medical History:
Chronic ambulatory dysfunction uses rollator at baseline
Past Surgical History: Reports None
Social History
Tobacco: Non-smoker
Alcohol: None
Drug: None
Personal: (9 months)
Living: Alone
Employment: Retired
Family History
Family History: Not pertinent
Allergies / Home Medications
Allergies reflects when Allergies were last updated in [facility].
Home Medications with original date entered in [facility]
Allergy/Medication List:
Allergies
Allergy/AdvReac Type Severity Reaction Status Date / Time
nut - unspecified Allergy Unknown Verified 03/12/25 11:19
peanut Allergy Nausea / Verified 03/12/25 11:19
Vomiting
pollen extracts Allergy spring Verified 03/12/25 11:19
allergies
raw vegetable Allergy sharp Verified 03/12/25 11:19
stomach
pain,weakness
raw fuits Allergy stomach Uncoded 03/12/25 11:19
pains,
weakness
Home Medications
omeprazole 10 mg capsule,delayed release (Prilosec) 20 mg PO DAILY Gastrointestinal Issue 12/06/18
metformin 500 mg tablet,extended release 24 hr 1,000 mg PO BID Diabetes 12/31/18
multivitamin with folic acid 400 mcg tablet (Tab-A-Ena) 1 tab PO DAILY@1200 12/31/18
calcium 600 mg (as carbonate)-vitamin D3 20 mcg (800 unit) tablet 1 ea PO DAILY Supplement 02/17/19
isosorbide mononitrate 30 mg tablet,extended release 24 hr 30 mg PO DAILY Heart Disease/Condition 08/19/19
acetaminophen 325 mg tablet (Tylenol) 650 mg PO HS Pain 12/10/22
rivaroxaban 20 mg tablet (Xarelto) 20 mg PO QPM Blood Clot Prevention/Tx 12/10/22
rosuvastatin 20 mg tablet 20 mg PO HS High Cholesterol 12/10/22
insulin NPH-regular 70-30 U-100 insulin 100 unit/mL subcutaneous pen (Novolin 70-30 FlexPen U-100 Insulin) 42 unit SC DAILY 02/09/24
memantine 10 mg tablet 10 mg PO DAILY 02/09/24
cyanocobalamin (vitamin B-12) 1,000 mcg tablet 1,000 mcg PO DIRECTED 03/12/25
iron 65 mg PO DAILY 03/12/25
metoprolol succinate 25 mg tablet,extended release 24 hr 25 mg PO DAILY 03/12/25
zinc 1 tab PO DAILY 03/12/25
Review of Systems
-
History Source: Patient and Family (Son Aldo at bedside along with [id number])
A 12 point ROS was completed and negative except as noted: Yes
Constitutional: Reports Fatigue; Denies Fever or Chills
EENT: Denies Sore Throat
Respiratory: Reports Cough; Denies Trouble Breathing
Cardiac: Denies Chest Pain, Diaphoresis, Palpitations or Syncope
Abdomen/GI: Denies Abdominal Pain, Nausea, Vomiting or Diarrhea
: Denies Dysuria, Frequency or Flank Pain
Musculoskeletal: Denies Joint Pain
Skin: Denies Itching or Rash
Neurological: Reports Weakness (Generalized); Denies Dizzy or Headache
Endocrine: Reports No Symptoms
Hematologic/Lymphatic: Reports No Symptoms
Psych: Reports Calm
Physical Exam
Vital Signs
Vital Signs
Temp Pulse Resp BP Pulse Ox
98.7 F 99 26 136/99 93
03/12/25 11:16 03/12/25 14:46 03/12/25 14:46 03/12/25 14:46 03/12/25 14:46
Physical Exam
General: Comfortable, Conversant and Other (Generalized fatigue); No Fever or Chills
HEENT: NormoCephalic, Anicteric, Moist mucous membranes, PERRLA, [place] Conjunctivae, No Ptosis and Oxygen (2 L nasal cannula)
Respiratory: Rhonchi (Mild bilateral lungs); No Wheezes or Rales
Cardiac: S1/S2 and Irregular Rhythm (A-fib with RVR); No Murmur, Rub, Gallop or Peripheral Edema
Breast: Deferred by me
GI: Soft, Non Tender, Non Distended, Normal Bowel Sounds and No Hepatosplenomegaly
Genito-urinary: Deferred by me
Musculoskeletal: No Clubbing, No Cyanosis and No Edema
Skin: Warm and Dry; No Rash
Neuro: No Sensory Deficits and Other (Drowsy but oriented to name, review of systems, son); No Slurred Speech, Facial Droop or Tremors
Psych: Calm
Laboratory Results
-
03/12/25 11:53
03/12/25 11:53
Laboratory Results
Lactic Acid 3.3 mmol/L (0.7-2.0) H 03/12/25 12:53
Total Bilirubin 1.8 mg/dl (0.2-1.3) H 03/12/25 11:53
AST 27 U/L (17-59) 03/12/25 11:53
ALT 26 U/L (0-50) 03/12/25 11:53
Alkaline Phosphatase 54 U/L (38-126) 03/12/25 11:53
Troponin I 0.048 ng/ml H* 03/12/25 11:53
Data Reviewed
-
Diagnostic Radiology: Report Reviewed by me
CT Scan: Report Reviewed by me
Lab Data: Labs Reviewed by me
Impression/Plan
-
Impression/plan:
Admit to IMU
#Sepsis secondary to bilateral pneumonia
#Acute hypoxic respiratory insufficiency secondary to bilateral pneumonia
WBC 19.3 with left shift, 98.7, HR 109, 121/88
89 RA -94% 2 L nasal cannula supplemental O2 as needed
Lactic acid 3.3 will follow
COVID and flu negative, UA negative
- Check blood cultures x 2
-IV cefepime, doxycycline
- Sputum culture
- Incentive spirometry
- PT/OT/case management consult
CXR:
1. Severe perihilar ground-glass opacity in the left midlung and moderate infrahilar ground-glass opacity in the right lung.
Diagnostic possibilities are (1) acute alveolar pulmonary edema or (2) bilateral pneumonia.
2. Mild to moderate cardiomegaly.
3. Previous TAVR.
4. Mild to moderate elevation of the right hemidiaphragm.
5. Minimal bilateral pleural effusions.
CT head: Moderate diffuse cerebral and cerebellar volume loss
Mild periventricular white matter leukoaraiosis
Small chronic infarcts both cerebellar hemispheres
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
# Possible acute CHF�NEW
BNP 6310
I/O, daily weight
Hold on current diuretics
- Check 2D echo
-Consult [facility] cardiology
2D echo 12/24/2023: EF 60-65%, normal LVS LVSF, no wall abnormalities well-seated TAVR, trace TR, PASP 30-35 mmHg
#A-fib with RVR/paroxysmal A-fib
-IV Cardizem bolus with IV Cardizem drip
-Continue Xarelto
- Consult [facility] cardiology
- Continue metoprolol 25 mg daily
#Troponin elevation likely secondary to A-fib with RVR
#CAD status post cath 2018
Troponin 0.043 will trend
-Continue Imdur 30 mg daily with hold parameters
EKG A-fib with RVR [address] depression anterior lateral leads QTc 473 MS
#Mechanical fall with unknown floor exposure
No current complaints, CK 66
#HTN�benign
BP 121/88
#DM2 with hyperglycemia
Blood sugar 276-patient's endocrine keeps patient's blood sugar around 200
Accu-Cheks with SSI, check HgbA1c
Will give NovoLog 70/30 20 units now patient takes NovoLog 70/30 42 units in a.m.
- Continue metformin 1000 mg twice daily
#TAVR/severe aortic stenosis 2018
#Chronic anemia
#Iron deficiency
Hgb 11.4, MCV 81.8
-Continue iron 65 mg daily
#Mild memory impairment
-Continue Namenda 10 mg a.m.
#HLD
- Continue Crestor 20 mg at bedtime
- Check lipid profile
# GERD
- Continue Prilosec or equivalent
# BPH
- Monitor urine output
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
Continue Crestor
#Chronic ambulatory dysfunction uses rollator at baseline
Other PMH:
Zenker's diverticulum resection in 1990
hemorrhoids
DVT prophylaxis
Continue BUDGET COORDINATOR Xarelto
DNR per son Aldo at bedside
[2025-03-12 14:59] LABS: Urine White Cell 0-2 /HPF (0-5)
[2025-03-12] MEDS: MAXIPIME 2000 MG IV (16:11)
--- NOTE | 2025-03-12 17:00 | EDCM ---
CM reviewed chart and met with pt and son bedside in ED. Pt's son in Ortho MD at .
Lives in [place] apt at [facility], has elevator access.
Needs assistance with ADLs and personal care, has [employer] from [facility] from 730a to 8p every day. Ambulates with Rollator, also has cane and shower chair.
Confirms prescription coverage.
PCP: Priscilla Capellan
Pharmacy: [facility] Noel Beatty
CM will continue to follow for all discharge planning needs.
[2025-03-12] MEDS: XARELTO 20 MG PO (17:42)
[2025-03-12 17:47] LABS: Glucose - Point of Care 219 mg/dl (70-99)
[2025-03-12] MEDS: VIBRAMYCIN 260 MG IV (18:11)
[2025-03-12] MEDS: NOVOLOG FLEXPEN-LOW RESISTANCE 2 UNITS SC (18:11)
[2025-03-12] MEDS: FLUSH (NSS) 1 FLUSH IV (18:12)
[2025-03-12 19:01] LABS: Troponin I 0.124 ng/ml
--- NOTE | 2025-03-12 20:30 | PTCARENOTE ---
Pt frequently c/o feeling like he has to urinate but unable to do so. Pt bladder scanned. 0ml in bladder. Pt informed that his bladder is empty but that he may feel the urge to go as a result of possible UTI and chronic BPH. Urine cx pending. VSS.
No c/o pain. Pt resting comfortably in bed at this time. Care ongoing.
[2025-03-12] MEDS: VIBRAMYCIN 100 MG PO (21:07)
[2025-03-12] MEDS: TYLENOL 650 MG PO (21:07)
[2025-03-12] MEDS: CRESTOR 20 MG PO (21:07)
[2025-03-12 22:16] LABS: Glucose - Point of Care 261 mg/dl (70-99)
[2025-03-13] VITALS (15 sets, daily range): BP systolic 106–160; BP diastolic 61–90; PULSE 103; O2SAT 96; BMI 24.5
--- NOTE | 2025-03-13 00:10 | PTCARENOTE ---
Troponin remains elevated. 00:00 troponin 0.165. Repeat troponin to be done at 0600 per protocol. EKG to be done in AM.
[2025-03-13 00:44] LABS: Troponin I 0.165 ng/ml
[2025-03-13] MEDS: MAXIPIME 1000 MG IV ×4 (01:11→23:45)
[2025-03-13 06:34] LABS: Hematocrit 35.0 % (39.0-52.0); Hemoglobin 11.4 g/dL (13.0-18.0); Mean Corp Hgb Conc. 32.6 g/dL (33.0-37.0); Mean Corpuscular Volume 83.7 fL (80.0-94.0); Nucleated Red Blood Cells % 0 % (-); Platelet Count 157 10^3/uL (130-400); Red Cell Dist. Width 18.7 % (11.5-14.5)
[2025-03-13 07:02] LABS: ALT (SGPT) 17 U/L (0-50); AST (SGOT) 19 U/L (17-59); Albumin 3.8 g/dl (3.5-5.0); Alkaline Phosphatase 68 U/L (38-126); Blood Urea Nitrogen 17 mg/dl (9-20); Calcium 8.9 mg/dl (8.4-10.2); Carbon Dioxide 26 mmol/L (22-30); Chloride 104 mmol/L (98-107); Estimated Creatinine Clearance 55 ml/min; Glucose 201 mg/dl (70-99); HDL Cholesterol 32 mg/dl; LDL Cholesterol, Calculated 22 mg/dl; Potassium 3.8 mmol/L (3.5-5.1); Sodium 137 mmol/L (135-145); Total Protein 6.6 g/dl (6.3-8.2); Very Low Density Lipoprotein 16 mg/dl (0-30); eGFR > 60.00
[2025-03-13 07:12] LABS: Troponin I 0.181 ng/ml
[2025-03-13 08:04] LABS: Glucose - Point of Care 225 mg/dl (70-99)
[2025-03-13] MEDS: VITAMIN B-12 1000 MCG PO (08:25)
[2025-03-13] MEDS: IMDUR (EXTENDED RELEASE) 30 MG PO (08:25)
[2025-03-13] MEDS: VIBRAMYCIN 100 MG PO ×2 (08:25→19:48)
[2025-03-13] MEDS: GLUCOPHAGE 1000 MG PO (08:25)
[2025-03-13] MEDS: PROTONIX 20 MG PO (08:26)
[2025-03-13] MEDS: ZINC 50 MG PO (08:26)
[2025-03-13] MEDS: NAMENDA 10 MG PO (08:26)
[2025-03-13] MEDS: OSCAL 500 + D 500 MG PO (08:26)
[2025-03-13] MEDS: FEOSOL 325 MG PO (08:26)
[2025-03-13] MEDS: TOPROL XL 25 MG PO (08:26)
[2025-03-13] MEDS: NOVOLOG FLEXPEN-LOW RESISTANCE 2 UNITS SC (08:27)
[2025-03-13] MEDS: NOVOLOG MIX 70/30 FLEXPEN 20 UNITS SC (08:27)
--- NOTE | 2025-03-13 08:33 | CON.CAR ---
Addendum entered and electronically signed by Jenny Moore DO 03/13/25 11:47:
I saw and examined the patient.
The Machine Brusher's note was reviewed and I agree with the note.
Comment: I had the pleasure to see Justin Jain in [id number]. Mr. Jain came to the ER yesterday with weakness and was admitted with rapid A-fib and possible PNA, cardiology is now consulted. Patient is living alone since his with
pancreatic cancer, he has home health aides and close family support. His son is a orthopedic physician at [facility], Dr. Jain. Mr. Jain found him on the floor and called for an ambulance which was able to help get the patient up and
back into bed, but patient appeared weak and had a mild cough and was brought to the ER for further evaluation. Patient was found to be in A-fib with RVR. Patient's son feels like he has been in and out of A-fib at home. There has been no
interruption of Xarelto which is provided by aides daily. CXR suggested B/L PNA versus pulmonary edema. Patient was afebrile, but WBC count up to 19.3 and initial lactic acid was 3.3. Patient was admitted with sepsis and was started on
doxycycline and cefepime. proBNP was also elevated at 6310 and initial troponin 0.048 and now up to 0.181, but patient denies any chest pain, SOB or palpitations. Patient was started on Cardizem gtt and overall HR control has improved, gtt still
running at 5 mg/hr
GEN: NAD, AAO to person, place and situation, he knows he is in the hospital, but he did not know that he was here with PNA
HEENT: EOMI, MMM
LUNGS: 4 L NC. Nonproductive cough with deep inspiration, no wheeze or rales
CV: Afib on tele. Irreg irreg, S1/S2, 2/6 syst LSB
ABD: soft, BS+, NT, ND
EXT: Trace B/L LE edema.
Plan:
Found on floor for unclear duration prompting ER evaluation.
-Hypoxic respiratory distress, 89% requiring nasal cannula O2. Labs with leukocytosis 19.3, lactic acid 3.3 that has improved today to 1.7. Hemoglobin 11.4,Sodium 136, potassium 4.3, initial BUN/creatinine 16/1.1. Creatinine today 17/1. Initial
blood sugar 276. Hemoglobin A1c 8.4%. LFTs within normal limits.
- CXR suggested B/L PNA versus pulmonary edema.
-Flu/COVID negative. Blood cultures pending. Respiratory culture pending. Urine culture no growth to date.
-Empiric antibiotics per primary.
- Aspiration precautions.
History of atrial fibrillation presented with rapid atrial fibrillation at 146 bpm
-Relatively asymptomatic although poor historian. Per family may be having paroxysms of A-fib at home
- Telemetry, persistent atrial fibrillation with heart rates 90s to 100s
-Continue IV Cardizem drip For now and reassess heart rate trends later today. Patient's son, Dr. Jain said that metoprolol had been previously increased to 50 mg daily for recurrent A-fib however he feels his father is more fatigued at higher
doses. Could consider addition of Cardizem CD 120 daily to metoprolol versus starting an antiarrhythmic.
-If patient remains in atrial fibrillation, could consider cardioversion prior to discharge. He has had no interruption of Xarelto which was confirmed by his son Dr. Jain
-Continue uninterrupted Xarelto. Given cognitive decline/dementia with history of falls could consider outpatient evaluation for Watchman which was briefly discussed with Dr. Jain
-Check TSH
- Fall precautions
Perhaps mild volume overload in the setting of pneumonia, possible aspiration?
-proBNP is elevated and differential on CXR includes PNA vs pulmonary edema.
-Patient was not taking a diuretic prior to admission. Will give a dose of Lasix 40 mg IV x 1 now and follow diuretic response
-Check echo, EF was 60 to 65% with normal function of his TAVR at last check 12/24/2023
-Patient is not chronically on SERG/ARB/ARNI/aldosterone antagonist and there is a history of hyperkalemia so we will need to be cautious
History of coronary artery disease with abnormal cardiac troponin.
- Initial troponin was 0.048 and it has trended up to 0.181, another troponin is pending for later today. No acute ischemic changes on ECG and patient denies any chest pain. Pending results of echo we will treat this as a nonischemic myocardial
injury troponin elevation
- Denies chest pain but unreliable historian
-2D echocardiogram pending
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
-Continue anticoagulation for A-fib.
-CT of the head following fall on anticoagulation shows moderate diffuse cerebral and cerebellar volume loss with mild periventricular white matter leukoaraiosis and small chronic infarcts of the cerebellum. There is also a 1 cm arachnoid cyst in
the right frontal lobe which appears unchanged. No CT evidence for acute fracture or scalp soft tissue hematoma.
Diabetes mellitus type 2, uncontrolled with hemoglobin A1c 8.4%. Defer to primary.
Zenker's diverticulum status post resection 1990- noted
Will follow with you
Original Note:
Consultation
Consultation Request
Date/Time Consultation Requested: 03/12/25 at 1549
Date/Time Consultation Performed: 03/13/25 at 0835
Requesting Provider: Dr. Naidu
Performing Provider: Dr. Moreno
Reason for Consultation: Afib with RVR
Medical History
-
History of Present Illness:
Patient came to the ER yesterday with weakness and was admitted with rapid A-fib and possible PNA, cardiology is now consulted. Patient is living alone since his with pancreatic cancer, he has home health aides. The family was
checking on him yesterday and found him on the floor and called for an ambulance which was able to help get the patient up and back into bed, but patient appeared weak and had a mild cough and was brought to the ER for further evaluation. Patient
was found to be in A-fib with RVR. CXR suggested B/L PNA versus pulmonary edema. Patient was afebrile, but WBC count up to 19.3 and initial lactic acid was 3.3. Patient was admitted with sepsis and was started on doxycycline and cefepime. proBNP
was also elevated at 6310 and initial troponin 0.048 and now up to 0.181, but patient denies any chest pain, SOB or palpitations. Patient was started on Cardizem gtt and overall HR control has improved, gtt still running at 5 mg/hr
PMH:
Paroxysmal A-fib and typical flutter
Chronic Xarelto OAC
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
Moderate coronary disease by cath 01/03/19
Hypertension
Diabetes, type II
Dyslipidemia
GERD
BPH
Zenker's diverticulum status post resection 1990
Hemorrhoids
Past Medical History
Past Medical History: Other (in HPI)
Past Surgical History: Appendectomy, Cardiac (TAVR 2018) and Other (Zenker's diverticulum repair 1990)
Social History
Tobacco: Non-Smoker
Alcohol: None
Drug: None
Personal:
Living: With Family
Family History
Family History: CAD
Allergies / Home Medications
Allergy/AdvReac Type Severity Reaction Status Date / Time
nut - unspecified Allergy Unknown Verified 03/12/25 11:19
peanut Allergy Nausea / Verified 03/12/25 11:19
Vomiting
pollen extracts Allergy spring Verified 03/12/25 11:19
allergies
raw vegetable Allergy sharp Verified 03/12/25 11:19
stomach
pain,weakness
raw fuits Allergy stomach Uncoded 03/12/25 11:19
pains,
weakness
�Medication �Instructions �Recorded �Confirmed �Type
metformin 500 mg tablet,extended 1,000 mg PO BID Diabetes 12/31/18 03/12/25 History
release 24 hr
calcium 600 mg (as 1 ea PO NOON Supplement 02/17/19 03/12/25 History
carbonate)-vitamin D3 20 mcg (800
unit) tablet
isosorbide mononitrate 30 mg 30 mg PO DAILY Heart 08/19/19 03/12/25 History
tablet,extended release 24 hr Disease/Condition
rivaroxaban 20 mg tablet (Xarelto) 20 mg PO QPM Blood Clot 12/10/22 03/12/25 History
Prevention/Tx
rosuvastatin 20 mg tablet 20 mg PO QPM High Cholesterol 12/10/22 03/12/25 History
insulin NPH-regular 70-30 U-100 42 unit SC DAILY 02/09/24 03/12/25 History
insulin 100 unit/mL subcutaneous
pen (Novolin 70-30 FlexPen U-100
Insulin)
memantine 10 mg tablet 10 mg PO BID 02/09/24 03/12/25 History
cyanocobalamin (vitamin B-12) 1,000 mcg PO NOON 03/12/25 03/12/25 History
1,000 mcg tablet
ferrous sulfate 325 mg (65 mg 325 mg PO QPM 03/12/25 03/12/25 History
iron) tablet
metoprolol succinate 25 mg 25 mg PO QPM 03/12/25 03/12/25 History
tablet,extended release 24 hr
omega 6-tmc-dwe-fish oil 1,000 mg 1 cap PO NOON 03/12/25 03/12/25 History
(120 mg-180 mg) capsule (Fish Oil)
omeprazole 20 mg capsule,delayed 20 mg PO DAILY 03/12/25 03/12/25 History
release
zinc gluconate 30 mg tablet 30 mg PO NOON 03/12/25 03/12/25 History
Review of Systems
-
History Source: Patient
All other systems: Negative unless noted
Physical Exam
Vital Signs
Temp Pulse Resp BP Pulse Ox
97.2 F 113 23 151/89 91
03/13/25 05:40 03/13/25 08:26 03/13/25 06:10 03/13/25 08:26 03/13/25 06:10
GEN: NAD, AAO to person, place and situation, he knows he is in the hospital, but he did not know that he was here with PNA
HEENT: EOMI, MMM
LUNGS: 4 L NC. Nonproductive cough with deep inspiration, no wheeze or rales
CV: Afib on tele. Irreg irreg, S1/S2, 2/6 syst LSB
ABD: soft, BS+, NT, ND
EXT: Trace B/L LE edema. No clubbing, cyanosis or lesions B/L
NEURO: Gross non-focal
SKIN: Warm, dry and pink. No rash
Lab Results
03/13/25 06:23
03/13/25 06:23
Troponin I 0.181 ng/ml H* 03/13/25 06:23
Aya-E-Yhlztsjaolp Pept 6310 pg/ml 03/12/25 11:53
Impression / Plan
-
PCP: Dr. Baltazar
Neuro: Dr. López
ID: Dr. Cha
Endocrine: Dr. Moeller
Primary Vessel Ordinary Seaman: Dr. Duarte
Impression:
Admitted with rapid A-fib and PNA 03/12/2025
A-fib with RVR
Paroxysmal A-fib and typical flutter
Chronic Xarelto OAC
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
Moderate coronary disease by cath 01/03/19
Hypertension
Diabetes, type II
Dyslipidemia
GERD
BPH
Zenker's diverticulum s/p resection 1990
ECHO 03/2019: EF 60%, mild cLVH, no regional wall motion abnormalities, #26mm Jenkins S3 valve in aortic position, mean gradient 8mmHg, no AR
ECHO 08/19/19: EF 60-65%, well seated #26 Jenkins TAVR with peak/mean gradients 15/8mmHg
Echo 10/31/22: EF 65-70%, normal regional wall motion, mild concentric LVH, well-seated TAVR with peak/mean 12/7 mmHg, no aortic regurgitation
Echo 12/24/2023: EF 60 to 65%, nl RV size/function, no MR, well-seated #26 Edward TAVR with peak/mean 80/4 mmHg and no AR, trace TR with PAP 30 to 35 mmHg, compared to echo 10/31/2022 no significant change
Plan:
-Patient came to the ER yesterday with weakness and was admitted with rapid A-fib and possible PNA, cardiology is now consulted. Patient is living alone since his with pancreatic cancer, he has home health aides. The family was
checking on him yesterday and found him on the floor and called for an ambulance which was able to help get the patient up and back into bed, but patient appeared weak and had a mild cough and was brought to the ER for further evaluation. Patient
was found to be in A-fib with RVR. CXR suggested B/L PNA versus pulmonary edema. Patient was afebrile, but WBC count up to 19.3 and initial lactic acid was 3.3. Patient was admitted with sepsis and was started on doxycycline and cefepime. proBNP
was also elevated at 6310 and initial troponin 0.048 and now up to 0.181, but patient denies any chest pain, SOB or palpitations. Patient was started on Cardizem gtt and overall HR control has improved, gtt still running at 5 mg/hr
-ECG reviewed by me is A-fib with RVR, but no acute changes
-Telemetry looks like ongoing A-fib, HR is 105 to 115 bpm
-Patient with A-fib and RVR and a known history of paroxysmal A-fib/typical flutter. It is possible that his rapid A-fib is related to underlying PNA or CHF, or that acute HF triggered by rapid A-fib. Patient is generally in SR, he was in SR on my
review of the EC G from his office visit on 07/11/2024. Patient last needed CV 12/2022 in the setting of newly diagnosed atrial flutter.
-For now recommend treating underlying PNA and CHF and pending improvement can make plans for rhythm control strategy and possible CV vs DIANE/CV prior to discharge.
-Outpatient dose of Xarelto 20 mg daily has been continued throughout admission, will need to confirm with family the patient has not missed any doses of Xarelto at home over the last 3-4 weeks.
-Continue Cardizem gtt at 5 mg/hr for now plus usual outpatient dose of Toprol-XL 25 mg daily
-proBNP is elevated and differential on CXR includes PNA vs pulmonary edema. Patient was not taking a diuretic prior to admission. Will give a dose of Lasix 40 mg IV x 1 now and follow diuretic response
-Check echo, EF was 60 to 65% with normal function of his TAVR at last check 12/24/2023
-Pending response to diuresis and echo results we can modify GDMT. Toprol-XL has been continued as noted above.
-Patient is not chronically on SERG/ARB/ARNI/aldosterone antagonist and there is a history of hyperkalemia so we will need to be cautious
-Patient is not chronically on SGLT2 inhibitor, this will be another possible addition pending above
- Initial troponin was 0.048 and it has trended up to 0.181, another troponin is pending for later today. No acute ischemic changes on ECG and patient denies any chest pain. Pending results of echo we will treat this as a nonischemic myocardial
injury troponin elevation
[2025-03-13 08:51] LABS: Glycohemoglobin (HgbA1c) 8.4 % (4.0-5.6)
[2025-03-13] MEDS: CARDIZEM 125 IV (11:07)
[2025-03-13] MEDS: LASIX 40 MG IV (11:08)
[2025-03-13] MEDS: NOVOLOG FLEXPEN-LOW RESISTANCE 3 UNITS SC (12:49)
[2025-03-13 12:59] LABS: Glucose - Point of Care 282 mg/dl (70-99)
[2025-03-13] MEDS: PACERONE 200 MG PO ×2 (13:36→19:48)
[2025-03-13 14:33] LABS: Troponin I 0.100 ng/ml
--- NOTE | 2025-03-13 14:48 | PTCARENOTE ---
Patient AOx2 (person and place). Forgetful and needs frequent reminders. Bed/chair alarm on and audible. 4L NC with SpO2 92%. A fib/flutter on the monitor. HR goes to 120's during ambulation. Cardizem gtt running at 5/hr. 25 condom cath draining
yellow urine. Assist x1 when OOB. Call watkins within reach, bed in lowest position, and bed of wheels locked.
[2025-03-13 14:51] LABS: Procalcitonin 11.88 ng/ml (0.0-0.25)
--- NOTE | 2025-03-13 14:53 | PTCARENOTE ---
TigerTexted Dr. Naidu about critical procalcitonin result of 11.88.
--- NOTE | 2025-03-13 15:22 | W.PN.HOSP.TC ---
Today's Communication/Plan
-
cont abx
trial lasix dosing
speech eval
wean o2 as tolerated
cont Afib management with dilt and amio - transition to PO as able
Assessment / Plan
Assessment / Plan
Physical Exam
General: Comfortable, Conversant and Other (Generalized fatigue); No Fever or Chills
HEENT: NormoCephalic, Anicteric, Moist mucous membranes, PERRLA, [place] Conjunctivae, No Ptosis and Oxygen (2 L nasal cannula)
Respiratory: Rhonchi (Mild bilateral lungs); No Wheezes or Rales
Cardiac: S1/S2 and Irregular Rhythm (A-fib with RVR); No Murmur, Rub, Gallop or Peripheral Edema
Breast: Deferred by me
GI: Soft, Non Tender, Non Distended, Normal Bowel Sounds and No Hepatosplenomegaly
Genito-urinary: Deferred by me
Musculoskeletal: No Clubbing, No Cyanosis and No Edema
Skin: Warm and Dry; No Rash
Neuro: No Sensory Deficits and Other (Drowsy but oriented to name, review of systems, son); No Slurred Speech, Facial Droop or Tremors
Psych: Calm
#Severe Sepsis secondary to bilateral pneumonia
#Acute hypoxic respiratory insufficiency secondary to bilateral pneumonia
-Procal 11
-Will continue abx for now
-F/u cultures including blood and sputum
- Incentive spirometry
-Speech eval
-f/u MRSA swab
#A-fib with RVR/paroxysmal A-fib
-Cont IV Cardizem drip
-Continue Xarelto
- Consult [facility] cardiology
- Continue metoprolol 25 mg daily
-Started on amiodarone
-F/u TFTs
-Possible cardioversion depending on clinical course
# Pulmonary Edema
-most likely exacerbated with Afib along with possible Pna
BNP 6310
I/O, daily weight
-IV lasix today and monitor diuretic response
-F/u ECHO
-Hx of hyperkalemia - monitor additional meds
-2D echo 12/24/2023: EF 60-65%, normal LVS LVSF, no wall abnormalities well-seated TAVR, trace TR, PASP 30-35 mmHg
#Troponin elevation likely secondary to A-fib with RVR
#CAD status post cath 2018
-Continue Imdur 30 mg daily with hold parameters
#Mechanical fall with unknown floor exposure
no evidence of rhabdo
#HTN�benign
#DM2 with hyperglycemia
Blood sugar 276-patient's endocrine keeps patient's blood sugar around 200
Accu-Cheks with SSI, check HgbA1c
NovoLog 70/30
-hold metformin 1000 mg twice daily in the acute setting
-DM consulted
#TAVR/severe aortic stenosis 2018
#Chronic anemia
#Iron deficiency
-Continue iron 65 mg daily
#Mild memory impairment
-Continue Namenda 10 mg a.m.
#HLD
- Continue Crestor 20 mg at bedtime
- Check lipid profile
# GERD
- Continue Prilosec or equivalent
# BPH
- Monitor urine output
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
Continue Crestor
#Chronic ambulatory dysfunction uses rollator at baseline
Other PMH:
Zenker's diverticulum resection in 1990
hemorrhoids
DVT prophylaxis
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
Total Critical Care Time 51 minutes. I was immediately available to the patient and staff. I personally examined, reviewed labs, diagnostic images/reports, interpretations, treatment plans, discussed patient care with other providers and family
or caregivers (if patient is unable to make decisions), entered orders as appropriate and documented the medical record.
Anticipated Discharge: > 48 hours
Subjective/Interval History
-
Date of Service: March 13, 2025
Patient remains mildly hypoxic, given 1 dose Lasix
Objective Data
-
Labs:
Laboratory Results
03/13/25
06:23
WBC 13.9 H
Hgb 11.4 L
Hct 35.0 L
Plt Count 157
Sodium 137
Potassium 3.8
Chloride 104
Carbon Dioxide 26
BUN 17
Creatinine 1.0
Glucose 201 H
Calcium 8.9
Total Bilirubin 2.5 H
AST 19
ALT 17
Alkaline Phosphatase 68
Vital Signs:
Vital Signs
Temp Pulse Resp BP Pulse Ox
97.2 F 97 25 119/83 92
03/13/25 05:40 03/13/25 14:00 03/13/25 14:00 03/13/25 14:00 03/13/25 14:00
I&O
03/12/25 03/13/25 03/14/25
06:59 06:59 06:59
Intake Total 585 / 585 480 / 480
Output Total 600 / 600 1150 / 1150
Balance -15 / -15 -670 / -670
Review of Systems
-
History Source: Patient
All other systems: Not reviewed unless documented
Data Reviewed
-
Diagnostic Radiology: Report Reviewed by me
CT Scan: Report Reviewed by me
Labs: Labs Reviewed by me
--- NOTE | 2025-03-13 15:28 | CM ---
Following up on Patient. RN stated that he is on 2 antibiotics, on a Cardizem drip now for titration, and will discuss cardioverting him. PT/OT wrote SNF vs. Home so will continue to follow.
PLAN: Home PT/ VN vs. Infusion or SNF.
[2025-03-13 17:29] LABS: Glucose - Point of Care 191 mg/dl (70-99)
[2025-03-13] MEDS: NOVOLOG FLEXPEN-LOW RESISTANCE 1 UNITS SC (18:18)
[2025-03-13] MEDS: XARELTO 20 MG PO (18:18)
[2025-03-13] MEDS: STERILE WATER FOR INJECTION 10 ML IV ×2 (18:18→23:45)
[2025-03-13] MEDS: NOVOLOG MIX 70/30 FLEXPEN 24 UNITS SC (18:19)
[2025-03-13] MEDS: CRESTOR 20 MG PO (19:48)
[2025-03-13] MEDS: TYLENOL 650 MG PO (19:50)
--- NOTE | 2025-03-13 20:59 | PTCARENOTE ---
Caring for pt overnight. aaox2-3, pleasant. Family at bedside & updated with care plan. Cardizem gtt running at 5, HR 80-90's, continues to be in afib. VSS. Weaned to 3LNC 92%. CC in place. No edema. Crackles at bases of lungs. Denies pain. PO & IV
abx. Will continue to monitor.
[2025-03-13 22:11] LABS: Glucose - Point of Care 139 mg/dl (70-99)
[2025-03-14] VITALS (14 sets, daily range): BP systolic 105–151; BP diastolic 68–100; PULSE 95; O2SAT 96; BMI 23.8
[2025-03-14 04:57] LABS: Hematocrit 34.3 % (39.0-52.0); Hemoglobin 11.0 g/dL (13.0-18.0); Mean Corp Hgb Conc. 32.1 g/dL (33.0-37.0); Mean Corpuscular Volume 82.7 fL (80.0-94.0); Nucleated Red Blood Cells % 0 % (-); Platelet Count 154 10^3/uL (130-400); Red Cell Dist. Width 18.6 % (11.5-14.5)
[2025-03-14 05:12] LABS: ALT (SGPT) 17 U/L (0-50); AST (SGOT) 20 U/L (17-59); Albumin 3.7 g/dl (3.5-5.0); Alkaline Phosphatase 52 U/L (38-126); Blood Urea Nitrogen 17 mg/dl (9-20); Calcium 9.0 mg/dl (8.4-10.2); Carbon Dioxide 29 mmol/L (22-30); Chloride 102 mmol/L (98-107); Estimated Creatinine Clearance 55 ml/min; Glucose 97 mg/dl (70-99); Potassium 3.3 mmol/L (3.5-5.1); Sodium 139 mmol/L (135-145); Total Protein 6.5 g/dl (6.3-8.2); eGFR > 60.00
[2025-03-14] MEDS: KCL 40 MEQ PO (06:19)
[2025-03-14 08:17] LABS: Glucose - Point of Care 125 mg/dl (70-99)
[2025-03-14] MEDS: NOVOLOG FLEXPEN-LOW RESISTANCE SC ×2 (08:21→11:46)
[2025-03-14] MEDS: OSCAL 500 + D 500 MG PO (08:27)
[2025-03-14] MEDS: VITAMIN B-12 1000 MCG PO (08:27)
[2025-03-14] MEDS: FEOSOL 325 MG PO (08:27)
[2025-03-14] MEDS: NAMENDA 10 MG PO (08:27)
[2025-03-14] MEDS: IMDUR (EXTENDED RELEASE) 30 MG PO (08:27)
[2025-03-14] MEDS: ZINC 50 MG PO (08:27)
[2025-03-14] MEDS: VIBRAMYCIN 100 MG PO ×2 (08:27→20:28)
[2025-03-14] MEDS: PROTONIX 20 MG PO (08:28)
[2025-03-14] MEDS: MAXIPIME 1000 MG IV ×3 (08:28→23:55)
[2025-03-14] MEDS: TOPROL XL 25 MG PO (08:28)
[2025-03-14] MEDS: STERILE WATER FOR INJECTION 10 ML IV ×3 (08:28→23:55)
[2025-03-14] MEDS: PACERONE 200 MG PO ×2 (08:29→20:28)
[2025-03-14] MEDS: NOVOLOG MIX 70/30 FLEXPEN 24 UNITS SC ×2 (08:29→17:28)
--- NOTE | 2025-03-14 10:11 | PN.CDI ---
CDI
- -
CDI:
Physician Documentation Request
Admit Date: 03/12/25 16:23
Dear Doctor Elysia,
Clinical Indicators:
Patient admitted with severe sepsis due to bilateral pneumonia; PMH includes memory impairment.
03/[address]: No acute changes
Lactic acid level on admission: 3.3
03/12 H & P, 'Today found on floor unknown duration with weakness and somnolence... The patient is very lethargic sleeping in bed currently.'
03/13 PN, Physical exam: Drowsy but oriented to name
Based on the above, could you clarify which, if any of the following, is the most likely etiology of the confusion/altered mental status.
Acute Metabolic Encephalopathy due to sepsis
Baseline memory impairment only, without encephalopathy
Other, please specify
Use of terms such as suspected, likely, concern for, or probable (associated with a specific diagnosis that is being evaluated, monitored, or treated as if it exists) are acceptable and can be coded in the inpatient setting, when documented at the
time of discharge.
Thank you,
AMAIRANI Garrison RN
CDI Specialist
available via tiger text
Please use your independent medical judgment in providing your response.
--- NOTE | 2025-03-14 10:23 | PN.CDI ---
CDI
- -
CDI:
Physician Documentation Request
Admit Date: 03/12/25 16:23
Dear Doctor Elysia,
Clinical Indicators:
Patient admitted with severe sepsis due to bilateral pneumonia; A Fib with RVR present on admission.
03/13 Cardiology consult, 'Perhaps mild volume overload in the setting of pneumonia...it is possible that his rapid A-fib is related to underlying PNA or CHF, or that acute HF triggered by rapid A-fib.
03/13 Echocardiogram Report: 'Ejection fraction is 55%...Compared to a prior transthoracic echocardiogram study from December 2023 no significant changes are seen.'
03/13 Lasix 40 mg IV x 1.
PN, 'Pulmonary Edema-most likely exacerbated with Afib along with possible Pna'
Please clarify the acuity and etiology of the pulmonary edema:
Acute non-cardiac pulmonary edema due to fluid overload
Acute pulmonary edema due to heart failure (please specify type and acuity)
Type: systolic, diastolic, combined or other type
Acuity: acute (new onset), chronic or acute on chronic
Chronic pulmonary edema due to non-cardiac etiology (specify cause)
Chronic pulmonary edema due to heart failure - (specify type and acuity as above)
Other, please specify
Use of terms such as suspected, likely, concern for, or probable (associated with a specific diagnosis that is being evaluated, monitored, or treated as if it exists) are acceptable and can be coded in the inpatient setting, when documented at the
time of discharge.
Thank you,
AMAIRANI Garrison RN
CDI Specialist
available via tiger text
Please use your independent medical judgment in providing your response.
--- NOTE | 2025-03-14 10:46 | W.PN.CARDCBS ---
Today's Communication / Plan
-
Stable cardiology status
Remains in rate controlled A-fib
Discontinue IV Cardizem
Echocardiogram unchanged
Impression / Plan
-
PCP: Dr. Baltazar
Neuro: Dr. López
ID: Dr. Cha
Endocrine: Dr. Moeller
Primary Electroplating Worker: Dr. Duarte
Impression:
Admitted with rapid A-fib and PNA 03/12/2025
A-fib with RVR
Paroxysmal A-fib and typical flutter
Chronic Xarelto OAC
Nonischemic myocardial injury with peak troponin of 0.181
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
Moderate coronary disease by cath 01/03/19
Hypertension
Diabetes, type II
Dyslipidemia
GERD
BPH
Zenker's diverticulum s/p resection 1990
ECHO 03/2019: EF 60%, mild cLVH, no regional wall motion abnormalities, #26mm Jenkins S3 valve in aortic position, mean gradient 8mmHg, no AR
ECHO 08/19/19: EF 60-65%, well seated #26 Jenkins TAVR with peak/mean gradients 15/8mmHg
Echo 10/31/22: EF 65-70%, normal regional wall motion, mild concentric LVH, well-seated TAVR with peak/mean 12/7 mmHg, no aortic regurgitation
Echo 12/24/2023: EF 60 to 65%, nl RV size/function, no MR, well-seated #26 Edward TAVR with peak/mean 80/4 mmHg and no AR, trace TR with PAP 30 to 35 mmHg, compared to echo 10/31/2022 no significant change
Echocardiogram 03/13/2025: Ejection fraction 55%, status post #26 Jenkins TAVR with mean gradient of 4 mmHg, mild concentric LVH, PA systolic 46 mmHg
Plan:
Remains in A-fib with rate control\\
Stop IV Cardizem and assess response
Continue Xarelto
Would opt for rate control at this point as has had A-fib at home which is relatively asymptomatic and would be at high risk of recurrent A-fib
Troponin elevation felt to be nonischemic myocardial injury
Updated patient's son Fei
PREADMIT NOTE
-Patient came to the ER yesterday with weakness and was admitted with rapid A-fib and possible PNA, cardiology is now consulted. Patient is living alone since his with pancreatic cancer, he has home health aides. The family was
checking on him yesterday and found him on the floor and called for an ambulance which was able to help get the patient up and back into bed, but patient appeared weak and had a mild cough and was brought to the ER for further evaluation. Patient
was found to be in A-fib with RVR. CXR suggested B/L PNA versus pulmonary edema. Patient was afebrile, but WBC count up to 19.3 and initial lactic acid was 3.3. Patient was admitted with sepsis and was started on doxycycline and cefepime. proBNP
was also elevated at 6310 and initial troponin 0.048 and now up to 0.181, but patient denies any chest pain, SOB or palpitations. Patient was started on Cardizem gtt and overall HR control has improved, gtt still running at 5 mg/hr
Progress Note - Electroplating Worker
Subjective
Date of Service: March 14, 2025
No complaints
Objective
Labs:
03/14/25 04:33
03/14/25 04:33
Labs
Hgb 11.0 g/dL (13.0-18.0) L 03/14/25 04:33
Hct 34.3 % (39.0-52.0) L 03/14/25 04:33
Plt Count 154 10^3/uL (130-400) 03/14/25 04:33
Sodium 139 mmol/L (135-145) 03/14/25 04:33
Potassium 3.3 mmol/L (3.5-5.1) L 03/14/25 04:33
BUN 17 mg/dl (9-20) 03/14/25 04:33
Creatinine 1.0 mg/dL (0.7-1.3) 03/14/25 04:33
Glucose 97 mg/dl (70-99) 03/14/25 04:33
Troponins
03/12/25 03/12/25 03/13/25
11:53 18:19 00:10
Troponin I 0.048 H* 0.124 H* D 0.165 H* D
03/13/25 03/13/25
06:23 13:50
Troponin I 0.181 H* 0.100 H* D
Vital Signs and I&O:
Vital Signs
Temp Pulse Resp BP Pulse Ox
97.5 F 96 20 134/84 94
03/14/25 07:00 03/14/25 10:00 03/14/25 10:00 03/14/25 10:00 03/14/25 10:00
Vital Signs
Temp Pulse Resp BP Pulse Ox
97.5 F 96 20 134/84 94
03/14/25 07:00 03/14/25 10:00 03/14/25 10:00 03/14/25 10:00 03/14/25 10:00
Intake & Output
03/12/25 03/13/25 03/14/25 03/15/25
06:59 06:59 06:59 06:59
Intake Total 585 / 585 960 / 960
Output Total 600 / 600 2850 / 2850
Balance -15 / -15 -189 / -1890
Physical Exam
Physical Exam
General: Well developed, well nourished in NAD.
Neck: Supple, no JVD, HJR, carotids +2 B/L, no bruits bilaterally.
Heart: Non displaced PMI, irregular, no murmurs, No S3, S4, no rubs.
Lungs: Scattered rhonchi
Extremities: No clubbing, cyanosis or edema bilaterally.
Neuro: Grossly nonfocal, awake, alert and oriented x3.
--- NOTE | 2025-03-14 10:54 | PTOTSP ---
Speech Therapy Evaluation:
Pt with chronic risk factors of dysphagia including hx of CVA, GERD, and Zenker's (although resected 1990), acutely compounded by weakness and hypoxia in the setting of bilateral pneumonia. At bedside, oropharyngeal swallow grossly functional. No
overt s/sx of aspiration across trials. Increased O2 requirement (2LO2), however WBC WNL and pt afebrile.
Recommend:
1. Continue Regular solids and thin liquids
2. Meds as tolerated
3. General aspiration and reflux precautions
4. COAL YARD SUPERVISOR to follow to monitor tolerance of diet and determine if pt would benefit from instrumental assessment given CXR
[2025-03-14 11:56] LABS: Glucose - Point of Care 225 mg/dl (70-99)
--- NOTE | 2025-03-14 13:41 | W.PN.HOSP.TC ---
Addendum entered and electronically signed by Rome Naidu MD 03/14/25 13:50:
Total time spent on today's encounter was 52 minutes which included time spent in counseling the patient/family regarding diagnosis and treatment plan as listed above, goals of care, and symptom management. Case was discussed with nursing staff,
specialists, and care coordinators/case management. All labs and imaging personally reviewed by me. Remainder the time spent in detailed review of previous records, lab data, imaging, and other medical provider documentation.
Original Note:
Today's Communication/Plan
-
stop dilt
monitor hr
cxr in am
cont abx
f/u cultures
f/u RUQ sono
Assessment / Plan
Assessment / Plan
Physical Exam
General: Comfortable, Conversant and Other (Generalized fatigue); No Fever or Chills
HEENT: NormoCephalic, Anicteric, Moist mucous membranes, PERRLA, [place] Conjunctivae, No Ptosis and Oxygen (2 L nasal cannula)
Respiratory: Rhonchi (Mild bilateral lungs); No Wheezes or Rales
Cardiac: S1/S2 and Irregular Rhythm (A-fib with RVR); No Murmur, Rub, Gallop or Peripheral Edema
Breast: Deferred by me
GI: Soft, Non Tender, Non Distended, Normal Bowel Sounds and No Hepatosplenomegaly
Genito-urinary: Deferred by me
Musculoskeletal: No Clubbing, No Cyanosis and No Edema
Skin: Warm and Dry; No Rash
Neuro: No Sensory Deficits and Other (Drowsy but oriented to name, review of systems, son); No Slurred Speech, Facial Droop or Tremors
Psych: Calm
#Severe Sepsis secondary to bilateral pneumonia
#Acute hypoxic respiratory insufficiency secondary to bilateral pneumonia
-As per Son - Dr. Jain - patient has been coughing for about more than a week
-Procal 11
-Will continue abx for now
-F/u cultures including blood(negative) and sputum
- Incentive spirometry
-Speech eval - cleared
-f/u MRSA swab negative
-CXR in AM
-Wean o2 as tolerated; O2 goal >92%
#A-fib with RVR/paroxysmal A-fib
-Can stop Dilt ggt
-Continue Xarelto
- Consult [facility] cardiology
- Continue metoprolol 25 mg daily
-Started on amiodarone
-F/u TFTs - WNL
-Possible cardioversion depending on clinical course
# Pulmonary Edema
-most likely exacerbated with Afib along with possible Pna
BNP 6310
I/O, daily weight
-s/p lasix today and monitor diuretic response
-F/u ECHO - no sig change
-Hx of hyperkalemia - monitor additional meds
-2D echo 12/24/2023: EF 60-65%, normal LVS LVSF, no wall abnormalities well-seated TAVR, trace TR, PASP 30-35 mmHg
#Troponin elevation likely secondary to A-fib with RVR
#CAD status post cath 2018
-Continue Imdur 30 mg daily with hold parameters
#Hyperbilirubinemia
� Does have possible mild right upper quadrant tenderness
� Follow-up right upper quadrant abdominal ultrasound
#Hypokalemia
-monitor and replete
#Mechanical fall with unknown floor exposure
no evidence of rhabdo
#HTN�benign
#DM2 with hyperglycemia
Blood sugar 276-patient's endocrine keeps patient's blood sugar around 200
Accu-Cheks with SSI, check HgbA1c
NovoLog 70/30
-hold metformin 1000 mg twice daily in the acute setting
-DM consulted
#TAVR/severe aortic stenosis 2018
#Chronic anemia
#Iron deficiency
-Continue iron 65 mg daily
#Mild memory impairment
-Continue Namenda 10 mg a.m.
#HLD
- Continue Crestor 20 mg at bedtime
- Check lipid profile
# GERD
- Continue Prilosec or equivalent
# BPH
- Monitor urine output
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
Continue Crestor
#Chronic ambulatory dysfunction uses rollator at baseline
Other PMH:
Zenker's diverticulum resection in 1990
hemorrhoids
DVT prophylaxis
Continue CORD CUTTER Xarelto
Total Critical Care Time 52 minutes. I was immediately available to the patient and staff. I personally examined, reviewed labs, diagnostic images/reports, interpretations, treatment plans, discussed patient care with other providers and family
or caregivers (if patient is unable to make decisions), entered orders as appropriate and documented the medical record.
Anticipated Discharge: > 48 hours
Subjective/Interval History
-
Date of Service: March 14, 2025
sitting in chair resting comfortably; rate controlled; stop cardizem
Objective Data
-
Labs:
Laboratory Results
03/14/25
04:33
WBC 9.8
Hgb 11.0 L
Hct 34.3 L
Plt Count 154
Sodium 139
Potassium 3.3 L
Chloride 102
Carbon Dioxide 29
BUN 17
Creatinine 1.0
Glucose 97
Calcium 9.0
Total Bilirubin 2.2 H
AST 20
ALT 17
Alkaline Phosphatase 52
Vital Signs:
Vital Signs
Temp Pulse Resp BP Pulse Ox
97.5 F 96 20 134/84 94
03/14/25 07:00 03/14/25 10:00 03/14/25 10:00 03/14/25 10:00 03/14/25 10:00
I&O
03/13/25 03/14/25 03/15/25
06:59 06:59 06:59
Intake Total 585 / 585 960 / 960
Output Total 600 / 600 2850 / 2850
Balance - / -1889 /
Review of Systems
-
History Source: Patient
All other systems: Not reviewed unless documented
Data Reviewed
-
Diagnostic Radiology: Report Reviewed by me
CT Scan: Report Reviewed by me
Labs: Labs Reviewed by me
--- NOTE | 2025-03-14 15:42 | PTCARENOTE ---
Patient AOx2-3. Forgetful and needs frequent reminders. Bed/chair alarm on and audible. 2L NC with SpO2 92%, attempted to wean patient to RA, but SpO2 <88%. A fib/flutter on the monitor. HR goes to 120's during ambulation. Cardizem gtt turned offer
per order. CC draining yellow urine. Assist x1 when OOB. Call watkins within reach, bed in lowest position, and bed of wheels locked.
--- NOTE | 2025-03-14 15:54 | CM ---
Following up on Patient. LYUBOV Paul saw PT/OT note that recommends Home PT vs. SNF. 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 LYUBOV Jimenezcarter spoke to the son to get an
impression of which was he would like to proceed (Home PT vs. SNF) and said that he would prefer Home PT, he would do better, but the important part is to have his father be able to stand up and ambulate like had before with a rolling walker.
Right now, son would like PT/OT to evaluate again and if his father needs SNF, would consider [facility]. Patient is still on IV Abx and just off the Cardizem drip. Case Management to follow up once PT/OT evaluate and patient is closer to discharge.
PLAN: Home PT vs. SNF.
[2025-03-14 17:27] LABS: Glucose - Point of Care 221 mg/dl (70-99)
[2025-03-14] MEDS: XARELTO 20 MG PO (17:27)
[2025-03-14] MEDS: NOVOLOG FLEXPEN-LOW RESISTANCE 2 UNITS SC (17:28)
[2025-03-14] MEDS: TYLENOL 650 MG PO (20:28)
[2025-03-14] MEDS: CRESTOR 20 MG PO (20:28)
[2025-03-14 21:39] LABS: Glucose - Point of Care 243 mg/dl (70-99)
[2025-03-15] VITALS (11 sets, daily range): BP systolic 93–149; BP diastolic 61–105; BMI 23.9
--- NOTE | 2025-03-15 03:56 | PTCARENOTE ---
Pt appearing to have restful night. Respirations even unlabored spo2 95% on 2L nc. Pt had no complaints over night at this time. Assessment care and vitals as charted.
[2025-03-15 07:06] LABS: Hematocrit 37.3 % (39.0-52.0); Hemoglobin 12.0 g/dL (13.0-18.0); Mean Corp Hgb Conc. 32.2 g/dL (33.0-37.0); Mean Corpuscular Volume 83.4 fL (80.0-94.0); Nucleated Red Blood Cells % 0 % (-); Platelet Count 143 10^3/uL (130-400); Red Cell Dist. Width 18.4 % (11.5-14.5)
[2025-03-15 07:30] LABS: ALT (SGPT) 19 U/L (0-50); AST (SGOT) 22 U/L (17-59); Albumin 3.9 g/dl (3.5-5.0); Alkaline Phosphatase 69 U/L (38-126); Blood Urea Nitrogen 15 mg/dl (9-20); Calcium 9.4 mg/dl (8.4-10.2); Carbon Dioxide 27 mmol/L (22-30); Chloride 103 mmol/L (98-107); Estimated Creatinine Clearance 55 ml/min; Glucose 123 mg/dl (70-99); Magnesium 1.6 mg/dl (1.6-2.3); Potassium 3.7 mmol/L (3.5-5.1); Sodium 140 mmol/L (135-145); Total Protein 6.9 g/dl (6.3-8.2); eGFR > 60.00
[2025-03-15 08:26] LABS: Glucose - Point of Care 163 mg/dl (70-99)
--- NOTE | 2025-03-15 08:36 | W.PN.CARDCBS ---
Today's Communication / Plan
-
Remains in A-fib, will increase Toprol to 50 mg daily for better rate control
Off IV Cardizem
Continue Xarelto for stroke prophylaxis
Cont rate control strategy as he is asymptomatic with increased risk of recurrent aFib
Cont med tx for nonMI troponin
Appears euvolemic with stable wts
Cont pulm toilet and tx of PNA
Impression / Plan
-
.
PCP: Dr. Baltazar
Neuro: Dr. López
ID: Dr. Cha
Endocrine: Dr. Moeller
Primary Hotshot Superintendent: Dr. Duarte
Impression:
Admitted with rapid A-fib and PNA 03/12/2025
A-fib with RVR with hx of Paroxysmal A-fib and typical flutter on Chronic Xarelto OAC
Nonischemic myocardial injury with peak troponin of 0.181
Acute hypoxic resp failure with b/l PNA
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
Moderate coronary disease by cath 01/03/19
Hypertension
Diabetes, type II
Dyslipidemia
GERD
BPH
Zenker's diverticulum s/p resection 1990
ECHO 03/2019: EF 60%, mild cLVH, no regional wall motion abnormalities, #26mm Jenkins S3 valve in aortic position, mean gradient 8mmHg, no AR
ECHO 08/19/19: EF 60-65%, well seated #26 Jenkins TAVR with peak/mean gradients 15/8mmHg
Echo 10/31/22: EF 65-70%, normal regional wall motion, mild concentric LVH, well-seated TAVR with peak/mean 12/7 mmHg, no aortic regurgitation
Echo 12/24/2023: EF 60 to 65%, nl RV size/function, no MR, well-seated #26 Edward TAVR with peak/mean 80/4 mmHg and no AR, trace TR with PAP 30 to 35 mmHg, compared to echo 10/31/2022 no significant change
Echocardiogram 03/13/2025: Ejection fraction 55%, status post #26 Jenkins TAVR with mean gradient of 4 mmHg, mild concentric LVH, PA systolic 46 mmHg
Plan:
Remains in A-fib, will increase Toprol to 50 mg daily for better rate control
Off IV Cardizem
Continue Xarelto for stroke prophylaxis
Cont rate control strategy as he is asymptomatic with increased risk of recurrent aFib
Cont med tx for nonMI troponin
Appears euvolemic with stable wts
Cont pulm toilet and tx of PNA
Discussed with nursing
Will update pt's son Fei Jain
PREADMIT NOTE: Patient came to the ER yesterday with weakness and was admitted with rapid A-fib and possible PNA, cardiology is now consulted. Patient is living alone since his with pancreatic cancer, he has home health aides. The
family was checking on him yesterday and found him on the floor and called for an ambulance which was able to help get the patient up and back into bed, but patient appeared weak and had a mild cough and was brought to the ER for further evaluation.
Patient was found to be in A-fib with RVR. CXR suggested B/L PNA versus pulmonary edema. Patient was afebrile, but WBC count up to 19.3 and initial lactic acid was 3.3. Patient was admitted with sepsis and was started on doxycycline and
cefepime. proBNP was also elevated at 6310 and initial troponin 0.048 and now up to 0.181, but patient denies any chest pain, SOB or palpitations. Patient was started on Cardizem gtt and overall HR control has improved, gtt still running at 5 mg/hr
Progress Note - Hotshot Superintendent
Subjective
Date of Service: March 15, 2025
Pt seen and examined. No complaints. No chest pain or shortness of breath.
Objective
Labs:
03/15/25 05:33
03/15/25 05:33
Labs
Hgb 12.0 g/dL (13.0-18.0) L 03/15/25 05:33
Hct 37.3 % (39.0-52.0) L 03/15/25 05:33
Plt Count 143 10^3/uL (130-400) 03/15/25 05:33
Sodium 140 mmol/L (135-145) 03/15/25 05:33
Potassium 3.7 mmol/L (3.5-5.1) 03/15/25 05:33
BUN 15 mg/dl (9-20) 03/15/25 05:33
Creatinine 1.0 mg/dL (0.7-1.3) 03/15/25 05:33
Glucose 123 mg/dl (70-99) H 03/15/25 05:33
Troponins
03/12/25 03/12/25 03/13/25
11:53 18:19 00:10
Troponin I 0.048 H* 0.124 H* D 0.165 H* D
03/13/25 03/13/25
06:23 13:50
Troponin I 0.181 H* 0.100 H* D
Vital Signs and I&O:
Vital Signs
Temp Pulse Resp BP Pulse Ox
97.6 F 91 17 149/94 88
03/15/25 03:00 03/15/25 08:00 03/15/25 08:00 03/15/25 06:00 03/15/25 08:00
Vital Signs
Temp Pulse Resp BP Pulse Ox
97.6 F 91 17 149/94 88
03/15/25 03:00 03/15/25 08:00 03/15/25 08:00 03/15/25 06:00 03/15/25 08:00
Intake & Output
03/13/25 03/14/25 03/15/25 03/16/25
06:59 06:59 06:59 06:59
Intake Total 585 / 585 960 / 960 600 / 600
Output Total 600 / 600 2850 / 2850 1725 / 1725
Balance -15 / -15 -1889 / -1890 -1124 / -1124
Physical Exam
Physical Exam
General: No acute distress, awake
Neck: Negative JVD
Heart: Irregularly irregular, Negative S3 positive S1/S2, Negative S4, No murmur
Lungs: CTA b/l, negative wheezes/rales/rhonchi
Abd: Positive BS, NT/ND, neg rebound/rigidity/guarding
Ext: Negative cyanosis/clubbing/edema
Neuro: nonfocal
[2025-03-15] MEDS: STERILE WATER FOR INJECTION 10 ML IV ×2 (09:12→10:12)
[2025-03-15] MEDS: MAXIPIME 1000 MG IV (09:12)
[2025-03-15] MEDS: NOVOLOG FLEXPEN-LOW RESISTANCE 1 UNITS SC (10:09)
[2025-03-15] MEDS: IMDUR (EXTENDED RELEASE) 30 MG PO (10:10)
[2025-03-15] MEDS: FEOSOL 325 MG PO (10:10)
[2025-03-15] MEDS: ZINC 50 MG PO (10:10)
[2025-03-15] MEDS: NAMENDA 10 MG PO (10:10)
[2025-03-15] MEDS: OSCAL 500 + D 500 MG PO (10:10)
[2025-03-15] MEDS: TOPROL XL 25 MG PO ×2 (10:10→12:40)
[2025-03-15] MEDS: VITAMIN B-12 1000 MCG PO (10:11)
[2025-03-15] MEDS: PACERONE 200 MG PO ×2 (10:11→20:20)
[2025-03-15] MEDS: PROTONIX 20 MG PO (10:11)
[2025-03-15] MEDS: VIBRAMYCIN 100 MG PO ×2 (10:11→20:20)
[2025-03-15] MEDS: ROCEPHIN 1000 MG IV (10:12)
[2025-03-15] MEDS: NOVOLOG MIX 70/30 FLEXPEN 25 UNITS SC ×2 (10:12→18:27)
[2025-03-15 11:28] LABS: Glucose - Point of Care 339 mg/dl (70-99)
[2025-03-15] MEDS: NOVOLOG MIX 70/30 FLEXPEN SC (11:32)
--- NOTE | 2025-03-15 12:34 | PN.DE.MGMTRT ---
Insulin Management
- -
03/15/2025 Diabetes Management Consult
Patient admitted 03/12 with weakness, fall at home - found to have sepsis secondary to community acquired pneumonia. PMH TAVR, GERD, HTN, HCL, diabetes, a-fib, diverticulitis, dysphagia, vascular dementia, CAD, CVA, hemorrhoids, BPH, cataracts,
bilateral hearing impairment. Prior to admission patient was taking 70/30 insulin 42 units daily and metformin 1000 BID. A1C is 8.4%, cr 1, eGFR > 60.
Patient is awake and alert, pleasant but unable to answer questions regarding his diabetes care. Information regarding diabetes medications obtained from chart. Patient does see Dr. Moeller endocrine. He is unsure if he has a glucose monitor
but states they check my sugar.
Yesterday patient received 24 units 70/30 glucose range 125 to 243.
Fasting glucose today 123. Will cautiously increase 70/30 to 25 units BID. CR is 1, eGFR > 60, can resume metformin 1000 BID first dose with dinner.
Discussed with nurse.
Will follow.
Diabetes History
- -
Type of Diabetes: 2 requiring insulin
Pre-Admission Diabetes Regimen
03/15/25
05:33
Creatinine 1.0
Lab Results
Hemoglobin A1c 8.4 % (4.0-5.6) H 03/13/25 06:23
Insulin Pump Settings
IP Diabetes Regimen
03/14/25 03/14/25 03/15/25
17:16 21:27 05:33
Glucose 123 H
POC Glucose 221 H 243 H
03/15/25 03/15/25
08:15 11:17
Glucose
POC Glucose 163 H 339 H
Patient Education
[2025-03-15] MEDS: NOVOLOG FLEXPEN-LOW RESISTANCE 2 UNITS SC (12:36)
[2025-03-15 12:39] LABS: Glucose - Point of Care 246 mg/dl (70-99)
[2025-03-15] MEDS: TYLENOL 650 MG PO ×2 (12:39→20:20)
--- NOTE | 2025-03-15 12:48 | PTCARENOTE ---
Assumed care of patient this morning. He is very forgetful, and does not remember short term. Pt c/o of back pain this morning. He got up OOB to stretcher and sent to CXR, then sat in chair for about 1.5 hours. Pt stating he is tired and his back
hurts and asked to get back to bed. aware and order for Tylenol, see MAR. Pt remains in A-fib, HR's controlled while patient is stationary, any exertion, pt is tachycardic as high as 140s on monitor. Cardiology ordered additional dose of
Metoprolol 25 mg, see MAR. Pt on RA, will dip to 88% at times but otherwise is ~92%. Assessment, care and VS as charted.
--- NOTE | 2025-03-15 14:31 | W.PN.HOSP.TC ---
Today's Communication/Plan
-
switch to ceftriaxone
increase toprol
wean o2
amb pulse ox
Assessment / Plan
Assessment / Plan
Physical Exam
General: Comfortable, Conversant and Other (Generalized fatigue); No Fever or Chills
HEENT: NormoCephalic, Anicteric, Moist mucous membranes, PERRLA, [place] Conjunctivae, No Ptosis and Oxygen (2 L nasal cannula)
Respiratory: Rhonchi (Mild bilateral lungs); No Wheezes or Rales
Cardiac: S1/S2 and Irregular Rhythm (A-fib with RVR); No Murmur, Rub, Gallop or Peripheral Edema
Breast: Deferred by me
GI: Soft, Non Tender, Non Distended, Normal Bowel Sounds and No Hepatosplenomegaly
Genito-urinary: Deferred by me
Musculoskeletal: No Clubbing, No Cyanosis and No Edema
Skin: Warm and Dry; No Rash
Neuro: No Sensory Deficits and Other (Drowsy but oriented to name, review of systems, son); No Slurred Speech, Facial Droop or Tremors
Psych: Calm
#Severe Sepsis secondary to bilateral pneumonia
#Acute hypoxic respiratory insufficiency secondary to bilateral pneumonia
-As per Son - Dr. Jain - patient has been coughing for about more than a week
-Procal 11
-Will continue abx for now - switch to ceftriaxone
-F/u cultures including blood(negative) and sputum(negative
- Incentive spirometry
-CXR improved
-Speech eval - cleared
-f/u MRSA swab negative
-Wean o2 as tolerated; O2 goal >92%
#A-fib with RVR/paroxysmal A-fib
-Can stop Dilt ggt
-Continue Xarelto
- Consult [facility] cardiology
-Increasing metoprolol 50 mg daily
-Started on amiodarone
-F/u TFTs - WNL
-Possible cardioversion depending on clinical course
# Pulmonary Edema, euvolemic
-most likely exacerbated with Afib along with possible Pna
BNP 6310
I/O, daily weight
-s/p lasix today and monitor diuretic response
-F/u ECHO - no sig change
-Hx of hyperkalemia - monitor additional meds
-2D echo 12/24/2023: EF 60-65%, normal LVS LVSF, no wall abnormalities well-seated TAVR, trace TR, PASP 30-35 mmHg
#Troponin elevation likely secondary to A-fib with RVR
#CAD status post cath 2018
-Continue Imdur 30 mg daily with hold parameters
#Hyperbilirubinemia
� Does have possible mild right upper quadrant tenderness
� Follow-up right upper quadrant abdominal ultrasound - unremarkable
#Hypokalemia
-monitor and replete
#Mechanical fall with unknown floor exposure
no evidence of rhabdo
#HTN�benign
#DM2 with hyperglycemia
Blood sugar 276-patient's endocrine keeps patient's blood sugar around 200
Accu-Cheks with SSI, check HgbA1c
NovoLog 70/30
-hold metformin 1000 mg twice daily in the acute setting
-DM consulted
#TAVR/severe aortic stenosis 2018
#Chronic anemia
#Iron deficiency
-Continue iron 65 mg daily
#Mild memory impairment
-Continue Namenda 10 mg a.m.
#HLD
- Continue Crestor 20 mg at bedtime
- Check lipid profile
# GERD
- Continue Prilosec or equivalent
# BPH
- Monitor urine output
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
Continue Crestor
#Chronic ambulatory dysfunction uses rollator at baseline
Other PMH:
Zenker's diverticulum resection in 1990
hemorrhoids
DVT prophylaxis
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
Total Critical Care Time 53 minutes. I was immediately available to the patient and staff. I personally examined, reviewed labs, diagnostic images/reports, interpretations, treatment plans, discussed patient care with other providers and family
or caregivers (if patient is unable to make decisions), entered orders as appropriate and documented the medical record.
Anticipated Discharge: > 48 hours
Subjective/Interval History
-
Date of Service: March 15, 2025
weaned off o2
Objective Data
-
Labs:
Laboratory Results
03/15/25
05:33
WBC 8.8
Hgb 12.0 L
Hct 37.3 L
Plt Count 143
Sodium 140
Potassium 3.7
Chloride 103
Carbon Dioxide 27
BUN 15
Creatinine 1.0
Glucose 123 H
Calcium 9.4
Total Bilirubin 1.5 H
AST 22
ALT 19
Alkaline Phosphatase 69
Vital Signs:
Vital Signs
Temp Pulse Resp BP Pulse Ox
97.8 F 108 19 137/84 92
03/15/25 07:15 03/15/25 12:40 03/15/25 12:00 03/15/25 12:40 03/15/25 12:52
I&O
03/14/25 03/15/25 03/16/25
06:59 06:59 06:59
Intake Total 960 / 960 600 / 600
Output Total 2850 / 2850 1725 / 1725
Balance -1890 / -1890 -1125 / -1125
Review of Systems
-
History Source: Patient
All other systems: Not reviewed unless documented
Data Reviewed
-
Diagnostic Radiology: Report Reviewed by me
CT Scan: Report Reviewed by me
Labs: Labs Reviewed by me
[2025-03-15 17:47] LABS: Glucose - Point of Care 123 mg/dl (70-99)
[2025-03-15] MEDS: NOVOLOG FLEXPEN-LOW RESISTANCE SC (17:50)
[2025-03-15] MEDS: XARELTO 20 MG PO (17:53)
[2025-03-15] MEDS: GLUCOPHAGE 1000 MG PO (17:53)
[2025-03-15] MEDS: CRESTOR 20 MG PO (20:20)
[2025-03-15 21:36] LABS: Glucose - Point of Care 71 mg/dl (70-99)
[2025-03-16] VITALS (15 sets, daily range): BP systolic 95–155; BP diastolic 65–106; PULSE 100–140; O2SAT 98; BMI 24.1
--- NOTE | 2025-03-16 03:22 | PTCARENOTE ---
Pt resting comfortably in bed; AAO x 2; Makes needs known; Denies pain; Remains in A-fib on monitor with HR ~ 80-100; SpO2 ~ 95% on RA; BP stable; Will continue to monitor and assess.
[2025-03-16 05:58] LABS: Glucose - Point of Care 81 mg/dl (70-99)
[2025-03-16 06:13] LABS: Hematocrit 39.5 % (39.0-52.0); Hemoglobin 12.3 g/dL (13.0-18.0); Mean Corp Hgb Conc. 31.1 g/dL (33.0-37.0); Mean Corpuscular Volume 83.0 fL (80.0-94.0); Nucleated Red Blood Cells % 0 % (-); Platelet Count 192 10^3/uL (130-400); Red Cell Dist. Width 18.3 % (11.5-14.5)
[2025-03-16 06:25] LABS: ALT (SGPT) 21 U/L (0-50); AST (SGOT) 24 U/L (17-59); Albumin 3.8 g/dl (3.5-5.0); Alkaline Phosphatase 65 U/L (38-126); Blood Urea Nitrogen 15 mg/dl (9-20); Calcium 9.4 mg/dl (8.4-10.2); Carbon Dioxide 30 mmol/L (22-30); Chloride 104 mmol/L (98-107); Estimated Creatinine Clearance 46 ml/min; Glucose 82 mg/dl (70-99); Potassium 3.7 mmol/L (3.5-5.1); Sodium 139 mmol/L (135-145); Total Protein 6.8 g/dl (6.3-8.2); eGFR 58.53
[2025-03-16] MEDS: NOVOLOG FLEXPEN-LOW RESISTANCE SC ×2 (07:40→17:30)
[2025-03-16 07:49] LABS: Glucose - Point of Care 100 mg/dl (70-99)
--- NOTE | 2025-03-16 08:49 | PN.DE.MGMTRT ---
Insulin Management
- -
03/16/2025 Diabetes Management Consult Follow up
Patient admitted 03/12 with weakness, fall at home - found to have sepsis secondary to community acquired pneumonia. PMH TAVR, GERD, HTN, HCL, diabetes, a-fib, diverticulitis, dysphagia, vascular dementia, CAD, CVA, hemorrhoids, BPH, cataracts,
bilateral hearing impairment. Prior to admission patient was taking 70/30 insulin 42 units daily and metformin 1000 BID. A1C is 8.4%, cr 1, eGFR > 60.
Patient is awake and alert, pleasant but unable to answer questions regarding his diabetes care. Information regarding diabetes medications obtained from chart. Patient does see Dr. Moeller endocrine. He is unsure if he has a glucose monitor
but states they check my sugar.
Yesterday patient received 25 units 70/30 glucose range 125 to 216, HS glucose 71.
Fasting glucose today 100. Will decrease 70/30 15 units BID for patient safety, continue metformin 1000 BID. CR is 1.2 , eGFR 58.53.
Discussed with nurse.
Will follow.
Diabetes History
- -
Type of Diabetes: 2 requiring insulin
Pre-Admission Diabetes Regimen
03/16/25
05:45
Creatinine 1.2
Lab Results
Hemoglobin A1c 8.4 % (4.0-5.6) H 03/13/25 06:23
Insulin Pump Settings
IP Diabetes Regimen
03/15/25 03/15/25 03/15/25
11:17 12:28 17:36
Glucose
POC Glucose 339 H 246 H 123 H
03/15/25 03/16/25 03/16/25
21:22 05:44 05:45
Glucose 82
POC Glucose 71 81
03/16/25
07:37
Glucose
POC Glucose 100 H
Meal type: Breakfast
Amount consumed: 50%
Patient Education
[2025-03-16] MEDS: VIBRAMYCIN 100 MG PO ×2 (09:09→19:28)
[2025-03-16] MEDS: GLUCOPHAGE 1000 MG PO ×2 (09:09→17:30)
[2025-03-16] MEDS: FEOSOL 325 MG PO (09:09)
[2025-03-16] MEDS: PROTONIX 20 MG PO (09:09)
[2025-03-16] MEDS: NAMENDA 10 MG PO (09:09)
[2025-03-16] MEDS: ZINC 50 MG PO (09:09)
[2025-03-16] MEDS: OSCAL 500 + D 500 MG PO (09:10)
[2025-03-16] MEDS: VITAMIN B-12 1000 MCG PO (09:10)
[2025-03-16] MEDS: PACERONE 200 MG PO ×2 (09:10→19:30)
[2025-03-16] MEDS: TOPROL XL 50 MG PO (09:10)
[2025-03-16] MEDS: IMDUR (EXTENDED RELEASE) 30 MG PO (09:10)
[2025-03-16] MEDS: STERILE WATER FOR INJECTION 10 ML IV (09:11)
[2025-03-16] MEDS: ROCEPHIN 1000 MG IV (09:11)
[2025-03-16] MEDS: NOVOLOG MIX 70/30 FLEXPEN SC ×2 (09:14→18:44)
[2025-03-16] MEDS: NOVOLOG MIX 70/30 FLEXPEN 12 UNITS SC (09:20)
--- NOTE | 2025-03-16 09:49 | W.PN.CARDCBS ---
Today's Communication / Plan
-
Continue a rate control strategy for A-fib. Ventricular rates are improved but not optimal. Would increase Toprol to 50 mg in the a.m. and 25 mg in the p.m.
Continue amiodarone 200 mg p.o. twice daily for 14 days then 200 mg daily.
Continue Xarelto
Will arrange follow-up I would consider cardioversion as outpatient if remains in A-fib.
Continue antibiotics for pneumonia.
Impression / Plan
-
.
PCP: Dr. Baltazar
Neuro: Dr. López
ID: Dr. Cha
Endocrine: Dr. Moeller
Primary Halal Butcher: Dr. Duarte
Impression:
Admitted with rapid A-fib and PNA 03/12/2025
A-fib with RVR with hx of Paroxysmal A-fib and typical flutter on Chronic Xarelto OAC
Nonischemic myocardial injury with peak troponin of 0.181
Acute hypoxic resp failure with b/l PNA
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
Moderate coronary disease by cath 01/03/19
Hypertension
Diabetes, type II
Dyslipidemia
GERD
BPH
Zenker's diverticulum s/p resection 1990
ECHO 03/2019: EF 60%, mild cLVH, no regional wall motion abnormalities, #26mm Jenkins S3 valve in aortic position, mean gradient 8mmHg, no AR
ECHO 08/19/19: EF 60-65%, well seated #26 Jenkins TAVR with peak/mean gradients 15/8mmHg
Echo 10/31/22: EF 65-70%, normal regional wall motion, mild concentric LVH, well-seated TAVR with peak/mean 12/7 mmHg, no aortic regurgitation
Echo 12/24/2023: EF 60 to 65%, nl RV size/function, no MR, well-seated #26 Edward TAVR with peak/mean 80/4 mmHg and no AR, trace TR with PAP 30 to 35 mmHg, compared to echo 10/31/2022 no significant change
Echocardiogram 03/13/2025: Ejection fraction 55%, status post #26 Jenkins TAVR with mean gradient of 4 mmHg, mild concentric LVH, PA systolic 46 mmHg
Plan:
Remains in A-fib, would increase Toprol to 50 mg in the a.m. and 25 mg in the p.m. for improved rate control.
Continue amiodarone 200 mg p.o. twice daily for now and then decrease to 200 mg daily in 14 days
Continue Xarelto for stroke prophylaxis
will discuss with primary debeaker regarding possible CV as outpt
Cont med tx for nonMI troponin
Appears euvolemic with stable wts
Cont pulm toilet and tx of PNA with antibiotics
PREADMIT NOTE: Patient came to the ER yesterday with weakness and was admitted with rapid A-fib and possible PNA, cardiology is now consulted. Patient is living alone since his with pancreatic cancer, he has home health aides. The
family was checking on him yesterday and found him on the floor and called for an ambulance which was able to help get the patient up and back into bed, but patient appeared weak and had a mild cough and was brought to the ER for further evaluation.
Patient was found to be in A-fib with RVR. CXR suggested B/L PNA versus pulmonary edema. Patient was afebrile, but WBC count up to 19.3 and initial lactic acid was 3.3. Patient was admitted with sepsis and was started on doxycycline and
cefepime. proBNP was also elevated at 6310 and initial troponin 0.048 and now up to 0.181, but patient denies any chest pain, SOB or palpitations. Patient was started on Cardizem gtt and overall HR control has improved, gtt still running at 5 mg/hr
Progress Note - Halal Butcher
Subjective
Date of Service: March 16, 2025
Overall denies chest pains or shortness of breath. Does not feel his atrial fibrillation.
Objective
Labs:
03/16/25 05:45
03/16/25 05:45
Labs
Hgb 12.3 g/dL (13.0-18.0) L 03/16/25 05:45
Hct 39.5 % (39.0-52.0) 03/16/25 05:45
Plt Count 192 10^3/uL (130-400) D 03/16/25 05:45
Sodium 139 mmol/L (135-145) 03/16/25 05:45
Potassium 3.7 mmol/L (3.5-5.1) 03/16/25 05:45
BUN 15 mg/dl (9-20) 03/16/25 05:45
Creatinine 1.2 mg/dL (0.7-1.3) 03/16/25 05:45
Glucose 82 mg/dl (70-99) 03/16/25 05:45
Troponins
03/13/25
13:50
Troponin I 0.100 H* D
Vital Signs and I&O:
Vital Signs
Temp Pulse Resp BP Pulse Ox
98.5 F 111 18 138/91 91
03/16/25 08:15 03/16/25 09:10 03/16/25 06:00 03/16/25 09:10 03/16/25 06:00
Vital Signs
Temp Pulse Resp BP Pulse Ox
98.5 F 111 18 138/91 91
03/16/25 08:15 03/16/25 09:10 03/16/25 06:00 03/16/25 09:10 03/16/25 06:00
Intake & Output
03/14/25 03/15/25 03/16/25 03/17/25
06:59 06:59 06:59 06:59
Intake Total 960 / 960 600 / 600 720 / 720
Output Total 2850 / 2850 1725 / 1725 400 / 400
Balance -1890 / -1890 -1125 / -1125 320 / 320
Physical Exam
Physical Exam
GEN: No distress, awake,
HEENT: supple, anicteric, mmm
LUNGS: CTA, no wheezes/rales
CV: Irreg, S1/S2, 1/6 syst LSB, no gallop
ABD: soft, BS+, NT/ND
EXT: No edema
NEURO: Gross non-focal
SKIN: No rash
--- NOTE | 2025-03-16 10:50 | W.PN.HOSP.TC ---
Addendum entered and electronically signed by Rome Naidu MD 03/16/25 16:30:
Baseline memory impairment only, without encephalopathy
Acute non-cardiac pulmonary edema due to fluid overload
Non ischemic myocardial injury
Original Note:
Today's Communication/Plan
-
Novolin 70/30 changed to 15 BID
Switch to cefdinir(Total 14 day course) and doxycycline (7 day course)
F/u CXR outpt
Toprol adjustment
Amiodarone on DC with taper as directed
F/u Cards for possible cardioversion outpt
F/u PCP within 1 week
F/u Labs within 1 week
Assessment / Plan
Assessment / Plan
Physical Exam
General: Comfortable, Conversant and Other (Generalized fatigue); No Fever or Chills
HEENT: NormoCephalic, Anicteric, Moist mucous membranes, PERRLA, [place] Conjunctivae, No Ptosis and Oxygen (2 L nasal cannula)
Respiratory: Rhonchi (Mild bilateral lungs); No Wheezes or Rales
Cardiac: S1/S2 and Irregular Rhythm (A-fib with RVR); No Murmur, Rub, Gallop or Peripheral Edema
Breast: Deferred by me
GI: Soft, Non Tender, Non Distended, Normal Bowel Sounds and No Hepatosplenomegaly
Genito-urinary: Deferred by me
Musculoskeletal: No Clubbing, No Cyanosis and No Edema
Skin: Warm and Dry; No Rash
Neuro: No Sensory Deficits and Other (Drowsy but oriented to name, review of systems, son); No Slurred Speech, Facial Droop or Tremors
Psych: Calm
#Severe Sepsis secondary to bilateral pneumonia
#Acute hypoxic respiratory insufficiency secondary to bilateral pneumonia, resolved
-As per Son - Dr. Jain - patient has been coughing for about more than a week
-Procal 11
-Will continue abx for now - switch to cefdinir to complete 14-day course of cefepime to ceftriaxone onto cefdinir; continue with doxycycline for 3 additional days to complete 7-day course.
-F/u cultures including blood(negative) and sputum(negative)
- Incentive spirometry
-CXR improved, can follow-up outpatient in 4 to 6 weeks
-Speech eval - cleared
-f/u MRSA swab negative
-Wean o2 as tolerated; O2 goal >92%
#A-fib with RVR/paroxysmal A-fib
-Can stop Dilt ggt
-Continue Xarelto
- Consult [facility] cardiology
-Increasing metoprolol 50 mg daily, add 25 mg p.m.
-Started on amiodarone 200 mg twice daily for 14 days then 200 mg daily
-F/u TFTs - WNL
-Possible cardioversion depending on clinical course outpatient
# Pulmonary Edema, euvolemic
-most likely exacerbated with Afib along with possible Pna
BNP 6310
I/O, daily weight
-s/p lasix today and monitor diuretic response
-F/u ECHO - no sig change
-Hx of hyperkalemia - monitor additional meds
-2D echo 12/24/2023: EF 60-65%, normal LVS LVSF, no wall abnormalities well-seated TAVR, trace TR, PASP 30-35 mmHg
#Troponin elevation likely secondary to A-fib with RVR
#CAD status post cath 2018
-Continue Imdur 30 mg daily with hold parameters
#Hyperbilirubinemia
� Does have possible mild right upper quadrant tenderness
� Follow-up right upper quadrant abdominal ultrasound - unremarkable
-likely 2/2 to sepsis
-resolved
#Hypokalemia
-monitor and replete
#Mechanical fall with unknown floor exposure
no evidence of rhabdo
-pt/ot
#HTN�benign
#DM2 with hyperglycemia
Blood sugar 276-patient's endocrine keeps patient's blood sugar around 200
Accu-Cheks with SSI, check HgbA1c
NovoLog - switch to 15mg BID
-resume metformin
-DM consulted
#TAVR/severe aortic stenosis 2018
#Chronic anemia
#Iron deficiency
-Continue iron 65 mg daily
#Mild memory impairment
-Continue Namenda 10 mg a.m.
#HLD
- Continue Crestor 20 mg at bedtime
- Check lipid profile
# GERD
- Continue Prilosec or equivalent
# BPH
- Monitor urine output
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
Continue Crestor
#Chronic ambulatory dysfunction uses rollator at baseline
Other PMH:
Zenker's diverticulum resection in 1990
hemorrhoids
DVT prophylaxis
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
More than 30 minutes spent in discharge including
Final examination of the patient
Summarizing hospital stay
Instructions for continuing care to all relevant caregivers
Preparation of discharge records, prescriptions, and referral forms
Total time spent (in minutes): 36
Anticipated Discharge: Today
Subjective/Interval History
-
Date of Service: March 16, 2025
#Mild elevated, hypoxia resolved
#Respiratory distress much improved
Objective Data
-
Labs:
Laboratory Results
03/16/25
05:45
WBC 7.9
Hgb 12.3 L
Hct 39.5
Plt Count 192 D
Sodium 139
Potassium 3.7
Chloride 104
Carbon Dioxide 30
BUN 15
Creatinine 1.2
Glucose 82
Calcium 9.4
Total Bilirubin 0.8
AST 24
ALT 21
Alkaline Phosphatase 65
Vital Signs:
Vital Signs
Temp Pulse Resp BP Pulse Ox
98.5 F 111 18 138/91 91
03/16/25 08:15 03/16/25 09:10 03/16/25 06:00 03/16/25 09:10 03/16/25 06:00
I&O
03/15/25 03/16/25 03/17/25
06:59 06:59 06:59
Intake Total 600 / 600 720 / 720
Output Total 1725 / 1725 400 / 400
Balance -1125 / -1125 320 / 320
Review of Systems
-
History Source: Patient
All other systems: Not reviewed unless documented
Data Reviewed
-
Diagnostic Radiology: Report Reviewed by me
CT Scan: Report Reviewed by me
Labs: Labs Reviewed by me
--- NOTE | 2025-03-16 11:21 | CM ---
Following up on Patient. Hospitalist is discharging the patient and it appears from PT/OT note the other day and via conversation with PT, that the patient will just need Home PT. LYUBOV Miller caught son Dr. Jain who will want Home PT with [facility].
Referral made and Imm Completed.
PLAN: Home PT w/ [facility]
--- NOTE | 2025-03-16 11:35 | VNURNOTE ---
Home Health Liaison met with patient at bedside to discuss [facility] nurse/therapy, visits, schedule and homebound status. Rep from [facility] was visiting as well. Patient is agreeable and understands that visits at home will be 2-3 x per week to
assess and teach medical management.
Patient is aware that [facility] will contact them for start of care within a few days after discharge from . Provided contact number for [facility].
[facility] referral completed in [facility].
[2025-03-16 12:46] LABS: Glucose - Point of Care 165 mg/dl (70-99)
[2025-03-16] MEDS: NOVOLOG FLEXPEN-LOW RESISTANCE 1 UNITS SC (13:02)
[2025-03-16] MEDS: MIRALAX 17 GRAMS PO (13:53)
--- NOTE | 2025-03-16 15:11 | PN.CDI ---
CDI
- -
CDI:
Physician Documentation Request
Admit Date: 03/12/25 16:23
Dear Doctor Elysia,
Clinical Indicators:
Patient admitted with severe sepsis due to bilateral pneumonia; A Fib with RVR present on admission.
03/13 Cardiology consult,'No acute ischemic changes on ECG and patient denies any chest pain... we will treat this as a nonischemic myocardial injury..'
03/16 PN, 'Troponin elevation likely secondary to A-fib with RVR'
Troponin trend:
03/12/25 03/12/25 03/13/25
11:53 18:19 00:10
Troponin I 0.048 H* 0.124 H* D 0.165 H* D
03/13/25 03/13/25
06:23 13:50
Troponin I 0.181 H* 0.100 H* D
Due to potentially conflicting documentation,, could you clarify in the progress notes, the appropriate diagnosis, if significant, that supports the above abnormalities and additional evaluation, monitoring and/or treatment rendered:
Non ischemic myocardial injury
Troponin elevation only
Other, please specify
Use of terms such as suspected, likely, concern for, or probable (associated with a specific diagnosis that is being evaluated, monitored, or treated as if it exists) are acceptable and can be coded in the inpatient setting, when documented at the
time of discharge.
Thank you,
AMAIRANI Garrison RN
CDI Specialist
available via tiger text
Please use your independent medical judgment in providing your response.
[2025-03-16] MEDS: XARELTO 20 MG PO (17:30)
[2025-03-16] MEDS: TOPROL XL 25 MG PO (17:30)
[2025-03-16 17:38] LABS: Glucose - Point of Care 124 mg/dl (70-99)
--- NOTE | 2025-03-16 18:45 | PTCARENOTE ---
Patient only eating an applesauce and half of a chocolate ice cream for dinner. Pt ordered 15 units of Inuslin 70/30 and pre meal BS was 124. TT to Scarlet Lo for Insulin management. Gave verbal order for 6 units and sent to pharmacy.
[2025-03-16] MEDS: NOVOLOG MIX 70/30 FLEXPEN 6 UNITS SC (19:27)
[2025-03-16 21:08] LABS: Glucose - Point of Care 165 mg/dl (70-99)
[2025-03-16] MEDS: ZOFRAN 4 MG IV (21:54)
[2025-03-16] MEDS: TYLENOL 650 MG PO (21:54)
[2025-03-16] MEDS: CRESTOR 20 MG PO (21:54)
[2025-03-16] MEDS: DULCOLAX 10 MG RECTAL (21:54)
--- NOTE | 2025-03-16 22:33 | PTCARENOTE ---
pt with reported nausea and vomiting at change of shift. Pt assisted back into bed with assist x1 and RW. Pt stated he was still a little nauseous. No documented BM since admission, pt unable to recall whether he had had a bowel movement or not.
Abdomen round, nontender. Bowel sounds hypoactive. Miralax given earlier today. No abdominal imaging done this admission other than abdominal US. [facility] notified via tiger text. Orders placed for zofran PRN and dulcolax suppository. Zofran and
suppository given. Within 40 min of administration, pt OOB to BSC with large formed BM. VSS. HR 120-130s on exertion, 80-100 at rest. Pt resting comfortably in bed at this time. Call watkins within reach. Care ongoing.
[2025-03-17] VITALS (12 sets, daily range): BP systolic 94–135; BP diastolic 55–96; BMI 24.0
[2025-03-17 05:34] LABS: Hematocrit 38.8 % (39.0-52.0); Hemoglobin 12.1 g/dL (13.0-18.0); Mean Corp Hgb Conc. 31.2 g/dL (33.0-37.0); Mean Corpuscular Volume 82.4 fL (80.0-94.0); Nucleated Red Blood Cells % 0 % (-); Platelet Count 193 10^3/uL (130-400); Red Cell Dist. Width 18.4 % (11.5-14.5)
[2025-03-17 06:07] LABS: ALT (SGPT) 18 U/L (0-50); AST (SGOT) 20 U/L (17-59); Albumin 3.8 g/dl (3.5-5.0); Alkaline Phosphatase 61 U/L (38-126); Blood Urea Nitrogen 23 mg/dl (9-20); Calcium 9.4 mg/dl (8.4-10.2); Carbon Dioxide 27 mmol/L (22-30); Chloride 102 mmol/L (98-107); Estimated Creatinine Clearance 37 ml/min; Glucose 137 mg/dl (70-99); Potassium 4.6 mmol/L (3.5-5.1); Sodium 136 mmol/L (135-145); Total Protein 6.8 g/dl (6.3-8.2); eGFR 44.78
[2025-03-17 08:07] LABS: Glucose - Point of Care 143 mg/dl (70-99)
[2025-03-17] MEDS: PACERONE 200 MG PO ×2 (10:26→19:25)
[2025-03-17] MEDS: FEOSOL 325 MG PO (10:26)
[2025-03-17] MEDS: NAMENDA 10 MG PO (10:30)
[2025-03-17] MEDS: GLUCOPHAGE 1000 MG PO (10:30)
[2025-03-17] MEDS: VITAMIN B-12 1000 MCG PO (10:31)
[2025-03-17] MEDS: IMDUR (EXTENDED RELEASE) 30 MG PO (10:31)
[2025-03-17] MEDS: MIRALAX 17 GRAMS PO (10:31)
[2025-03-17] MEDS: NOVOLOG MIX 70/30 FLEXPEN 15 UNITS SC ×2 (10:33→17:44)
[2025-03-17] MEDS: NOVOLOG FLEXPEN-LOW RESISTANCE SC ×2 (10:34→17:43)
[2025-03-17] MEDS: OSCAL 500 + D 500 MG PO (10:34)
[2025-03-17] MEDS: TOPROL XL 50 MG PO (10:35)
[2025-03-17] MEDS: ZINC 50 MG PO (10:35)
[2025-03-17] MEDS: VIBRAMYCIN 100 MG PO ×2 (10:35→19:25)
[2025-03-17] MEDS: PROTONIX 20 MG PO (10:35)
[2025-03-17] MEDS: LR 1000 IV ×2 (10:40→16:26)
--- NOTE | 2025-03-17 10:59 | PTCARENOTE ---
Patient very drowsy today. OOB to chair for breakfast. IV fluid bolus infusing as ordered. Afib on monitor with hr 90-low 100's at rest. Pulse ox 94% on room air. Patient AAO X2 forgetful. Will continue to monitor.
[2025-03-17] MEDS: STERILE WATER FOR INJECTION 10 ML IV (11:02)
[2025-03-17] MEDS: ROCEPHIN 1000 MG IV (11:02)
--- NOTE | 2025-03-17 12:31 | W.PN.CARDCBS ---
Today's Communication / Plan
-
Continue beta-malcom 50 mg a.m., 25 mg p.m.
Continue amiodarone with taper as discussed in note
Continue Xarelto for stroke risk reduction
If does not convert on her own, outpatient cardioversion
Continue antibiotics for pneumonia
Will sign off please call with questions
Impression / Plan
-
.
PCP: Dr. Baltazar
Neuro: Dr. López
ID: Dr. Cha
Endocrine: Dr. Moeller
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 Duarte
Impression:
Admitted with rapid A-fib and PNA 03/12/2025
A-fib with RVR with hx of Paroxysmal A-fib and typical flutter on Chronic Xarelto OAC
Nonischemic myocardial injury with peak troponin of 0.181
Acute hypoxic resp failure with b/l PNA
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
Moderate coronary disease by cath 01/03/19
Hypertension
Diabetes, type II
Dyslipidemia
GERD
BPH
Zenker's diverticulum s/p resection 1990
ECHO 03/2019: EF 60%, mild cLVH, no regional wall motion abnormalities, #26mm Jenkins S3 valve in aortic position, mean gradient 8mmHg, no AR
ECHO 08/19/19: EF 60-65%, well seated #26 Jenkins TAVR with peak/mean gradients 15/8mmHg
Echo 10/31/22: EF 65-70%, normal regional wall motion, mild concentric LVH, well-seated TAVR with peak/mean 12/7 mmHg, no aortic regurgitation
Echo 12/24/2023: EF 60 to 65%, nl RV size/function, no MR, well-seated #26 Edward TAVR with peak/mean 80/4 mmHg and no AR, trace TR with PAP 30 to 35 mmHg, compared to echo 10/31/2022 no significant change
Echocardiogram 03/13/2025: Ejection fraction 55%, status post #26 Jenkins TAVR with mean gradient of 4 mmHg, mild concentric LVH, PA systolic 46 mmHg
Plan:
Remains in A-fib, continue Toprol to 50 mg in the a.m. and 25 mg in the p.m. for improved rate control.
Continue amiodarone 200 mg p.o. twice daily for now and then decrease to 200 mg daily in 14 days
EKG today demonstrates atrial flutter variable AV block 84 bpm with stable QRS duration and QT/QTc (manual measurement 417 ms at 84 bpm roughly 493 ms)
Continue Xarelto for stroke prophylaxis
Respiratory status improving overall; if does not convert during hospitalization, would then therefore recommend cardioversion as outpatient
Cont med tx for nonMI troponin
Appears euvolemic with stable wts
Cont pulm toilet and tx of PNA with antibiotics
No further recommendations at this time, will sign off. Please call back with questions
PREADMIT NOTE: Patient came to the ER yesterday with weakness and was admitted with rapid A-fib and possible PNA, cardiology is now consulted. Patient is living alone since his with pancreatic cancer, he has home health aides. The
family was checking on him yesterday and found him on the floor and called for an ambulance which was able to help get the patient up and back into bed, but patient appeared weak and had a mild cough and was brought to the ER for further evaluation.
Patient was found to be in A-fib with RVR. CXR suggested B/L PNA versus pulmonary edema. Patient was afebrile, but WBC count up to 19.3 and initial lactic acid was 3.3. Patient was admitted with sepsis and was started on doxycycline and
cefepime. proBNP was also elevated at 6310 and initial troponin 0.048 and now up to 0.181, but patient denies any chest pain, SOB or palpitations. Patient was started on Cardizem gtt and overall HR control has improved, gtt still running at 5 mg/hr
Progress Note - Washer And Capper Machine Operator
Subjective
Date of Service: March 17, 2025
Patient seen and examined's morning. No acute events overnight. Patient resting comfortably in chair. Patient notes mild fatigue. Denies any chest pain, shortness of breath, palpitations, lower extremity swelling or weakness. Telemetry
demonstrates atrial fibrillation with controlled ventricular response.
Objective
Labs:
03/17/25 05:10
Labs
Hgb 12.1 g/dL (13.0-18.0) L 03/17/25 05:10
Hct 38.8 % (39.0-52.0) L 03/17/25 05:10
Plt Count 193 10^3/uL (130-400) 03/17/25 05:10
Sodium 136 mmol/L (135-145) 03/17/25 05:10
Potassium 4.6 mmol/L (3.5-5.1) 03/17/25 05:10
BUN 23 mg/dl (9-20) H 03/17/25 05:10
Creatinine 1.5 mg/dL (0.7-1.3) H 03/17/25 05:10
Glucose 137 mg/dl (70-99) H 03/17/25 05:10
Vital Signs and I&O:
Vital Signs
Temp Pulse Resp BP Pulse Ox
97.5 F 97 20 127/96 95
03/17/25 07:23 03/17/25 10:00 03/17/25 10:00 03/17/25 10:00 03/16/25 20:00
Vital Signs
Temp Pulse Resp BP Pulse Ox
97.5 F 97 20 127/96 95
03/17/25 07:23 03/17/25 10:00 03/17/25 10:00 03/17/25 10:00 03/16/25 20:00
Intake & Output
03/15/25 03/16/25 03/17/25 03/18/25
06:59 06:59 06:59 06:59
Intake Total 600 / 600 720 / 720 480 / 480
Output Total 1725 / 1725 400 / 400 950 / 950
Balance -1125 / -1125 320 / 320 -470 / -470
Physical Exam
Physical Exam
GEN: No distress, awake,
HEENT: supple, anicteric, mmm
LUNGS: CTA, no wheezes/rales
CV: Irreg, S1/S2, 1/6 syst LSB, no gallop
ABD: soft, BS+, NT/ND
EXT: No edema
NEURO: Gross non-focal
SKIN: No rash
[2025-03-17 13:31] LABS: Glucose - Point of Care 191 mg/dl (70-99)
[2025-03-17] MEDS: NOVOLOG FLEXPEN-LOW RESISTANCE 1 UNITS SC (13:40)
[2025-03-17 15:37] LABS: Blood Urea Nitrogen 23 mg/dl (9-20); Calcium 9.2 mg/dl (8.4-10.2); Carbon Dioxide 23 mmol/L (22-30); Chloride 103 mmol/L (98-107); Estimated Creatinine Clearance 40 ml/min; Glucose 169 mg/dl (70-99); Potassium 4.6 mmol/L (3.5-5.1); Sodium 134 mmol/L (135-145); eGFR 48.65
--- NOTE | 2025-03-17 15:40 | W.PN.HOSP.TC ---
Today's Communication/Plan
-
IVF
Monitor renal function - anticipate Scr improves by tomorrow
Abx
BB, Amio
Assessment / Plan
Assessment / Plan
Physical Exam
General: Comfortable, Conversant and Other (Generalized fatigue); No Fever or Chills
HEENT: NormoCephalic, Anicteric, Moist mucous membranes, PERRLA, [place] Conjunctivae, No Ptosis and Oxygen (2 L nasal cannula)
Respiratory: Rhonchi (Mild bilateral lungs); No Wheezes or Rales
Cardiac: S1/S2 and Irregular Rhythm (A-fib with RVR); No Murmur, Rub, Gallop or Peripheral Edema
Breast: Deferred by me
GI: Soft, Non Tender, Non Distended, Normal Bowel Sounds and No Hepatosplenomegaly
Genito-urinary: Deferred by me
Musculoskeletal: No Clubbing, No Cyanosis and No Edema
Skin: Warm and Dry; No Rash
Neuro: No Sensory Deficits and Other (Drowsy but oriented to name, review of systems, son); No Slurred Speech, Facial Droop or Tremors
Psych: Calm
#Severe Sepsis secondary to bilateral pneumonia
#Acute hypoxic respiratory insufficiency secondary to bilateral pneumonia, resolved
-As per Son - Dr. Jain - patient has been coughing for about more than a week
-Procal 11
-Will continue abx for now - switch to cefdinir to complete 14-day course of cefepime to ceftriaxone onto cefdinir; continue with doxycycline for 3 additional days to complete 7-day course.
-F/u cultures including blood(negative) and sputum(negative)
- Incentive spirometry
-CXR improved, can follow-up outpatient in 4 to 6 weeks
-Speech eval - cleared
-f/u MRSA swab negative
-Wean o2 as tolerated; O2 goal >92%
#A-fib with RVR/paroxysmal A-fib
-Can stop Dilt ggt
-Continue Xarelto
- Consult [facility]ology
-Increasing metoprolol 50 mg daily, add 25 mg p.m.
-Started on amiodarone 200 mg twice daily for 14 days then 200 mg daily
-F/u TFTs - WNL
-Possible cardioversion depending on clinical course outpatient
#ALEXIS
-LR bolus today
-Cont IVF
-Monitor BMP
-monitor urine outpt
#Hyponatremia
-ctm
-mild
# Pulmonary Edema, euvolemic
-most likely exacerbated with Afib along with possible Pna
BNP 6310
I/O, daily weight
-s/p lasix today and monitor diuretic response
-F/u ECHO - no sig change
-Hx of hyperkalemia - monitor additional meds
-2D echo 12/24/2023: EF 60-65%, normal LVS LVSF, no wall abnormalities well-seated TAVR, trace TR, PASP 30-35 mmHg
#Troponin elevation likely secondary to A-fib with RVR
#CAD status post cath 2018
-Continue Imdur 30 mg daily with hold parameters
#Hyperbilirubinemia
� Does have possible mild right upper quadrant tenderness
� Follow-up right upper quadrant abdominal ultrasound - unremarkable
-likely 2/2 to sepsis
-resolved
#Hypokalemia
-monitor and replete
#Mechanical fall with unknown floor exposure
no evidence of rhabdo
-pt/ot
#HTN�benign
#DM2 with hyperglycemia
Blood sugar 276-patient's endocrine keeps patient's blood sugar around 200
Accu-Cheks with SSI, check HgbA1c
NovoLog 70/30 - switch to 15mg BID
-resume metformin
-DM consulted
#TAVR/severe aortic stenosis 2018
#Chronic anemia
#Iron deficiency
-Continue iron 65 mg daily
#Mild memory impairment
-Continue Namenda 10 mg a.m.
#HLD
- Continue Crestor 20 mg at bedtime
- Check lipid profile
# GERD
- Continue Prilosec or equivalent
# BPH
- Monitor urine output
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
Continue Crestor
#Chronic ambulatory dysfunction uses rollator at baseline
Other PMH:
Zenker's diverticulum resection in 1990
hemorrhoids
DVT prophylaxis
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
Total time spent on today's encounter was 51 minutes which included time spent in counseling the patient/family regarding diagnosis and treatment plan as listed above, goals of care, and symptom management. Case was discussed with nursing staff,
specialists, and care coordinators/case management. All labs and imaging personally reviewed by me. Remainder the time spent in detailed review of previous records, lab data, imaging, and other medical provider documentation.
Anticipated Discharge: Within 24 hours
Subjective/Interval History
-
Date of Service: March 17, 2025
no acute events, hrs improved
Objective Data
-
Labs:
Laboratory Results
03/17/25 03/17/25
05:10 15:06
WBC 8.4
Hgb 12.1 L
Hct 38.8 L
Plt Count 193
Sodium 136 134 L
Potassium 4.6 4.6
Chloride 102 103
Carbon Dioxide 27 23
BUN 23 H 23 H
Creatinine 1.5 H 1.4 H
Glucose 137 H 169 H
Calcium 9.4 9.2
Total Bilirubin 0.9
AST 20
ALT 18
Alkaline Phosphatase 61
Vital Signs:
Vital Signs
Temp Pulse Resp BP Pulse Ox
97.5 F 80 28 119/80 95
03/17/25 07:23 03/17/25 12:00 03/17/25 12:00 03/17/25 12:00 03/17/25 12:00
I&O
03/16/25 03/17/25 03/18/25
06:59 06:59 06:59
Intake Total 720 / 720 480 / 480
Output Total 400 / 400 950 / 950
Balance 320 / 320 -470 / -470
Review of Systems
-
History Source: Patient
All other systems: Not reviewed unless documented
Data Reviewed
-
Diagnostic Radiology: Report Reviewed by me
CT Scan: Report Reviewed by me
Labs: Labs Reviewed by me
--- NOTE | 2025-03-17 15:52 | CM ---
Following up on Patient. Patient did not discharge yesterday due to N/V and confirmed that the patient is still not discharging. Home PT with [facility] is arranged when he is ready. PLAN: Home PT when stable.
--- NOTE | 2025-03-17 15:55 | PTCARENOTE ---
Patient's appetite very poor today, barely eating 5% of his meals. Denies any N/V. States that he just doesn't feel like eating, he just wants to sleep. Currently resting in bed. Family in room at bedside.
[2025-03-17] MEDS: TOPROL XL 25 MG PO (16:27)
[2025-03-17] MEDS: FLUSH (NSS) 1 FLUSH IV (16:27)
[2025-03-17 17:05] LABS: Glucose - Point of Care 142 mg/dl (70-99)
[2025-03-17] MEDS: XARELTO 15 MG PO (17:42)
--- NOTE | 2025-03-17 21:00 | PTCARENOTE ---
Order in to transfer pt to telemetry room 2128. Report given via telephone to Socorro ROCK. Pt and all personal belongings transported to 2128. Left hearing aide was placed by pt and horse riding coach or instructor placed in personal bag. Eye glasses placed on pt. Meds
transported as well to pt's new room.
[2025-03-17] MEDS: TYLENOL 650 MG PO (21:22)
[2025-03-17] MEDS: CRESTOR 20 MG PO (21:22)
[2025-03-17 22:01] LABS: Glucose - Point of Care 178 mg/dl (70-99)
[2025-03-18] VITALS (7 sets, daily range): BP systolic 120–146; BP diastolic 67–97; BMI 23.8
[2025-03-18] MEDS: LR 1000 IV (05:10)
[2025-03-18 07:20] LABS: Glucose - Point of Care 172 mg/dl (70-99)
[2025-03-18 08:40] LABS: Blood Urea Nitrogen 21 mg/dl (9-20); Calcium 9.3 mg/dl (8.4-10.2); Carbon Dioxide 29 mmol/L (22-30); Chloride 102 mmol/L (98-107); Estimated Creatinine Clearance 40 ml/min; Glucose 159 mg/dl (70-99); Potassium 4.6 mmol/L (3.5-5.1); Sodium 138 mmol/L (135-145); eGFR 48.65
[2025-03-18] MEDS: PROTONIX 20 MG PO (10:03)
[2025-03-18] MEDS: OSCAL 500 + D 500 MG PO (10:03)
[2025-03-18] MEDS: VIBRAMYCIN 100 MG PO ×2 (10:03→20:16)
[2025-03-18] MEDS: PACERONE 200 MG PO ×2 (10:03→20:16)
[2025-03-18] MEDS: VITAMIN B-12 1000 MCG PO (10:03)
[2025-03-18] MEDS: ZINC 50 MG PO (10:04)
[2025-03-18] MEDS: TOPROL XL 50 MG PO (10:04)
[2025-03-18] MEDS: NAMENDA 10 MG PO (10:04)
[2025-03-18] MEDS: MIRALAX 17 GRAMS PO (10:04)
[2025-03-18] MEDS: FEOSOL 325 MG PO (10:04)
[2025-03-18] MEDS: IMDUR (EXTENDED RELEASE) 30 MG PO (10:04)
[2025-03-18] MEDS: STERILE WATER FOR INJECTION 10 ML IV (10:05)
[2025-03-18] MEDS: FLUSH (NSS) 2 FLUSH IV (10:05)
[2025-03-18] MEDS: FLUSH (NSS) 1 FLUSH IV ×2 (10:07→10:49)
[2025-03-18] MEDS: ROCEPHIN 1000 MG IV (10:13)
[2025-03-18] MEDS: NOVOLOG MIX 70/30 FLEXPEN 15 UNITS SC ×2 (10:47→17:04)
[2025-03-18] MEDS: NOVOLOG FLEXPEN-LOW RESISTANCE 1 UNITS SC ×2 (10:48→17:05)
--- NOTE | 2025-03-18 11:48 | CM ---
Pt for dc today with [facility].
No further needs identified.
[2025-03-18 12:09] LABS: Glucose - Point of Care 221 mg/dl (70-99)
--- NOTE | 2025-03-18 12:29 | W.PN.HOSP.TC ---
Today's Communication/Plan
-
Renal and Bladder US
Flomax
Stop Fluids *Has severe
Monitor BMP
Assessment / Plan
Assessment / Plan
Physical Exam
General: Comfortable, Conversant and Other (Generalized fatigue); No Fever or Chills
HEENT: NormoCephalic, Anicteric, Moist mucous membranes, PERRLA, [place] Conjunctivae, No Ptosis and Oxygen (2 L nasal cannula)
Respiratory: Rhonchi (Mild bilateral lungs); No Wheezes or Rales
Cardiac: S1/S2 and Irregular Rhythm (A-fib with RVR); No Murmur, Rub, Gallop or Peripheral Edema
Breast: Deferred by me
GI: Soft, Non Tender, Non Distended, Normal Bowel Sounds and No Hepatosplenomegaly
Genito-urinary: Deferred by me
Musculoskeletal: No Clubbing, No Cyanosis and No Edema
Skin: Warm and Dry; No Rash
Neuro: No Sensory Deficits and Other (Drowsy but oriented to name, review of systems, son); No Slurred Speech, Facial Droop or Tremors
Psych: Calm
#Severe Sepsis secondary to bilateral pneumonia
#Acute hypoxic respiratory insufficiency secondary to bilateral pneumonia, resolved
-As per Son - Dr. Jain - patient has been coughing for about more than a week
-Procal 11
-Will continue abx for now - switch to cefdinir to complete 14-day course of cefepime to ceftriaxone onto cefdinir; continue with doxycycline for 3 additional days to complete 7-day course.
-F/u cultures including blood(negative) and sputum(negative)
- Incentive spirometry
-CXR improved, can follow-up outpatient in 4 to 6 weeks
-Speech eval - cleared
-f/u MRSA swab negative
-Wean o2 as tolerated; O2 goal >92%
#A-fib with RVR/paroxysmal A-fib
-Can stop Dilt ggt
-Continue Xarelto
- Consult [facility]
-Increasing metoprolol 50 mg daily, add 25 mg p.m.
-Started on amiodarone 200 mg twice daily for 14 days then 200 mg daily
-F/u TFTs - WNL
-Possible cardioversion depending on clinical course outpatient
#ALEXIS
-IVF
-PVR midly elevated
-Renal And Bladder US
-Add flomax
-Monitor BMP
-monitor urine outpt
#Hyponatremia, resolved
-ctm
-mild
# Pulmonary Edema, euvolemic
-most likely exacerbated with Afib along with possible Pna
BNP 6310
I/O, daily weight
-s/p lasix today and monitor diuretic response
-F/u ECHO - no sig change
-Hx of hyperkalemia - monitor additional meds
-2D echo 12/24/2023: EF 60-65%, normal LVS LVSF, no wall abnormalities well-seated TAVR, trace TR, PASP 30-35 mmHg
#Troponin elevation likely secondary to A-fib with RVR
#CAD status post cath 2018
-Continue Imdur 30 mg daily with hold parameters
#Hyperbilirubinemia
� Does have possible mild right upper quadrant tenderness
� Follow-up right upper quadrant abdominal ultrasound - unremarkable
-likely 2/2 to sepsis
-resolved
#Hypokalemia
-monitor and replete
#Mechanical fall with unknown floor exposure
no evidence of rhabdo
-pt/ot
#HTN�benign
#DM2 with hyperglycemia
Blood sugar 276-patient's endocrine keeps patient's blood sugar around 200
Accu-Cheks with SSI, check HgbA1c
NovoLog 70/30 - switch to 15mg BID
-resume metformin
-DM consulted
#TAVR/severe aortic stenosis 2018
#Chronic anemia
#Iron deficiency
-Continue iron 65 mg daily
#Mild memory impairment
-Continue Namenda 10 mg a.m.
#HLD
- Continue Crestor 20 mg at bedtime
- Check lipid profile
# GERD
- Continue Prilosec or equivalent
# BPH
- Monitor urine output
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
Continue Crestor
#Chronic ambulatory dysfunction uses rollator at baseline
Other PMH:
Zenker's diverticulum resection in 1990
hemorrhoids
DVT prophylaxis
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
Anticipated Discharge: 24 - 48 hours
Subjective/Interval History
-
Date of Service: March 18, 2025
no acute events; Scr 1.4
Objective Data
-
Labs:
Laboratory Results
03/18/25
07:26
Sodium 138
Potassium 4.6
Chloride 102
Carbon Dioxide 29
BUN 21 H
Creatinine 1.4 H
Glucose 159 H
Calcium 9.3
Vital Signs:
Vital Signs
Temp Pulse Resp BP Pulse Ox
97.8 F 81 16 125/76 96
03/18/25 11:38 03/18/25 11:38 03/18/25 11:38 03/18/25 11:38 03/18/25 11:38
I&O
03/17/25 03/18/25 03/19/25
06:59 06:59 06:59
Intake Total 480 / 480 2150 / 2150
Output Total 950 / 950 1415 / 1415
Balance -470 / -470 735 / 735
Review of Systems
-
History Source: Patient
All other systems: Not reviewed unless documented
Data Reviewed
-
Diagnostic Radiology: Report Reviewed by me
CT Scan: Report Reviewed by me
Labs: Labs Reviewed by me
[2025-03-18] MEDS: NOVOLOG FLEXPEN-LOW RESISTANCE 2 UNITS SC (12:45)
[2025-03-18] MEDS: FLOMAX 0.4 MG PO (12:48)
[2025-03-18 16:47] LABS: Glucose - Point of Care 178 mg/dl (70-99)
[2025-03-18] MEDS: TOPROL XL 25 MG PO (17:03)
[2025-03-18] MEDS: XARELTO 15 MG PO (17:03)
[2025-03-18 22:30] LABS: Glucose - Point of Care 112 mg/dl (70-99)
[2025-03-18] MEDS: TYLENOL 650 MG PO (22:34)
[2025-03-18] MEDS: CRESTOR 20 MG PO (22:34)
[2025-03-19 03:00] VITALS: BP 117/63
[2025-03-19 05:58] VITALS: BMI 23.8
[2025-03-19 06:00] VITALS: BMI 23.7
[2025-03-19 07:30] VITALS: BP 122/58
[2025-03-19 07:39] LABS: Hematocrit 34.7 % (39.0-52.0); Hemoglobin 11.3 g/dL (13.0-18.0); Mean Corp Hgb Conc. 32.6 g/dL (33.0-37.0); Mean Corpuscular Volume 80.1 fL (80.0-94.0); Platelet Count 134 10^3/uL (130-400); Red Cell Dist. Width 18.2 % (11.5-14.5)
[2025-03-19 07:48] LABS: Glucose - Point of Care 127 mg/dl (70-99)
[2025-03-19 07:53] LABS: Blood Urea Nitrogen 16 mg/dl (9-20); Calcium 9.3 mg/dl (8.4-10.2); Carbon Dioxide 25 mmol/L (22-30); Chloride 106 mmol/L (98-107); Estimated Creatinine Clearance 50 ml/min; Glucose 108 mg/dl (70-99); Potassium 3.8 mmol/L (3.5-5.1); Sodium 139 mmol/L (135-145); eGFR > 60.00
[2025-03-19] MEDS: PROTONIX 20 MG PO (08:05)
[2025-03-19] MEDS: IMDUR (EXTENDED RELEASE) 30 MG PO (08:05)
[2025-03-19] MEDS: VIBRAMYCIN 100 MG PO (08:05)
[2025-03-19] MEDS: OSCAL 500 + D 500 MG PO (08:05)
[2025-03-19] MEDS: NOVOLOG FLEXPEN-LOW RESISTANCE SC (08:05)
[2025-03-19] MEDS: VITAMIN B-12 1000 MCG PO (08:06)
[2025-03-19] MEDS: ZINC 50 MG PO (08:06)
[2025-03-19] MEDS: TOPROL XL 50 MG PO (08:06)
[2025-03-19] MEDS: FLOMAX 0.4 MG PO (08:06)
[2025-03-19] MEDS: NAMENDA 10 MG PO (08:06)
[2025-03-19] MEDS: FEOSOL 325 MG PO (08:06)
[2025-03-19] MEDS: PACERONE 200 MG PO (08:06)
[2025-03-19] MEDS: NOVOLOG MIX 70/30 FLEXPEN 15 UNITS SC (08:07)
[2025-03-19] MEDS: MIRALAX 17 GRAMS PO (08:07)
[2025-03-19 08:21] VITALS: BP 122/58
[2025-03-19] MEDS: FLUSH (NSS) 1 FLUSH IV ×2 (09:09)
[2025-03-19] MEDS: ROCEPHIN 1000 MG IV (09:09)
[2025-03-19] MEDS: STERILE WATER FOR INJECTION 10 ML IV (09:10)
--- NOTE | 2025-03-19 11:13 | W.PN.HOSP.TC ---
Addendum entered and electronically signed by Rome Naidu MD 03/19/25 14:37:
[id number]
Original Note:
Today's Communication/Plan
-
Amiodarone dosing
Toprol
Flomax
Cefdinir completion
F/u CBC and BMP in 1 week with PCP
F/u PCP, Cards outpatient
Chest Imaging in 4-6 weeks
Assessment / Plan
Assessment / Plan
Physical Exam
General: Comfortable, Conversant and Other (Generalized fatigue); No Fever or Chills
HEENT: NormoCephalic, Anicteric, Moist mucous membranes, PERRLA, [place] Conjunctivae, No Ptosis and Oxygen (2 L nasal cannula)
Respiratory: Rhonchi (Mild bilateral lungs); No Wheezes or Rales
Cardiac: S1/S2 and Irregular Rhythm (A-fib with RVR); No Murmur, Rub, Gallop or Peripheral Edema
Breast: Deferred by me
GI: Soft, Non Tender, Non Distended, Normal Bowel Sounds and No Hepatosplenomegaly
Genito-urinary: Deferred by me
Musculoskeletal: No Clubbing, No Cyanosis and No Edema
Skin: Warm and Dry; No Rash
Neuro: No Sensory Deficits and Other (Drowsy but oriented to name, review of systems, son); No Slurred Speech, Facial Droop or Tremors
Psych: Calm
#Severe Sepsis secondary to bilateral pneumonia
#Acute hypoxic respiratory insufficiency secondary to bilateral pneumonia, resolved
-As per Son - Dr. Jain - patient has been coughing for about more than a week
-Procal 11
-Will continue abx for now - switch to cefdinir to complete 14-day course of cefepime to ceftriaxone onto cefdinir; Completed 7-day course of doxycycline.
-F/u cultures including blood(negative) and sputum(negative)
- Incentive spirometry
-CXR improved, can follow-up outpatient in 4 to 6 weeks
-Speech eval - cleared
-f/u MRSA swab negative
-Wean o2 as tolerated; O2 goal >92%
#A-fib with RVR/paroxysmal A-fib
-Can stop Dilt ggt
-Continue Xarelto
- Consult [facility]
-Increasing metoprolol 50 mg daily, add 25 mg p.m.
-Started on amiodarone 200 mg twice daily for 14 days then 200 mg daily
-F/u TFTs - WNL
-Possible cardioversion depending on clinical course outpatient
#ALEXIS, resolved
-PVR midly elevated
-Renal And Bladder US - mild urinary retention - most likely 2/2 to being stationary
-Add flomax - can dc with it - monitor for lower Bps and can stop - informed family
-Monitor BMP outpt
-monitor urine outpt
#Hyponatremia, resolved
-ctm
-mild
# Pulmonary Edema, euvolemic
-most likely exacerbated with Afib along with possible Pna
BNP 6310
I/O, daily weight
-s/p lasix today and monitor diuretic response
-F/u ECHO - no sig change
-Hx of hyperkalemia - monitor additional meds
-2D echo 12/24/2023: EF 60-65%, normal LVS LVSF, no wall abnormalities well-seated TAVR, trace TR, PASP 30-35 mmHg
#Troponin elevation likely secondary to A-fib with RVR
#CAD status post cath 2018
-Continue Imdur 30 mg daily with hold parameters
#Hyperbilirubinemia
� Does have possible mild right upper quadrant tenderness
� Follow-up right upper quadrant abdominal ultrasound - unremarkable
-likely 2/2 to sepsis
-resolved
#Hypokalemia
-monitor and replete
#Mechanical fall with unknown floor exposure
no evidence of rhabdo
-pt/ot
#HTN�benign
#DM2 with hyperglycemia
Blood sugar 276-patient's endocrine keeps patient's blood sugar around 200
Accu-Cheks with SSI, check HgbA1c
NovoLog 70/30 - switch to 15mg BID- will go back on home regimen outpt
-resume metformin
-DM consulted
#TAVR/severe aortic stenosis 2018
-f/u cards outpt
#Chronic anemia
#Iron deficiency
-Continue iron 65 mg daily
#Mild memory impairment
-Continue Namenda 10 mg a.m.
#HLD
- Continue Crestor 20 mg at bedtime
- Check lipid profile
# GERD
- Continue Prilosec or equivalent
# BPH
- Monitor urine output
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
Continue Crestor
#Chronic ambulatory dysfunction uses rollator at baseline
Other PMH:
Zenker's diverticulum resection in 1990
hemorrhoids
DVT prophylaxis
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
More than 30 minutes spent in discharge including
Final examination of the patient
Summarizing hospital stay
Instructions for continuing care to all relevant caregivers
Preparation of discharge records, prescriptions, and referral forms
Total time spent (in minutes): 36
Anticipated Discharge: Today
Subjective/Interval History
-
Date of Service: March 19, 2025
no acute events overnight
Objective Data
-
Labs:
Laboratory Results
03/19/25
06:54
WBC 7.2
Hgb 11.3 L
Hct 34.7 L
Plt Count 134 D
Sodium 139
Potassium 3.8
Chloride 106
Carbon Dioxide 25
BUN 16
Creatinine 1.1
Glucose 108 H
Calcium 9.3
Vital Signs:
Vital Signs
Temp Pulse Resp BP Pulse Ox
97.9 F 83 17 122/58 96
03/19/25 07:30 03/19/25 07:30 03/19/25 07:30 03/19/25 07:30 03/19/25 07:30
I&O
03/18/25 03/19/25 03/20/25
06:59 06:59 06:59
Intake Total 2150 / 2150 420 / 420
Output Total 1415 / 1415 680 / 680
Balance 735 / 735 -260 / -260
Review of Systems
-
History Source: Patient
All other systems: Not reviewed unless documented
Data Reviewed
-
Diagnostic Radiology: Report Reviewed by me
CT Scan: Report Reviewed by me
Labs: Labs Reviewed by me
[2025-03-19 11:14] VITALS: BP 119/76
--- NOTE | 2025-03-19 11:19 | W.DS.TRANS ---
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
-
Discharge Instructions:
Discharge Diagnosis/Procedures A-fib with RVR/paroxysmal A-fib
Severe Sepsis secondary to bilateral pneumonia
ALEXIS
mild urinary retention
Diet Low Cholesterol,Low Fat,Diabetic, Carb
Controlled
Activity As tolerated
Blood Work cbc and bmp in 5 -7 day with pcp
Instructions: *[facility] Heart Failure Instructions
Stand-Alone Forms:
Changes to Home Medications: Yes
Discharge Medications:
DC Medications w/original date entered in [employer]
metformin 500 mg tablet,extended release 24 hr 1,000 mg PO BID Diabetes 12/31/18
calcium 600 mg (as carbonate)-vitamin D3 20 mcg (800 unit) tablet 1 ea PO NOON Supplement 02/17/19
isosorbide mononitrate 30 mg tablet,extended release 24 hr 30 mg PO DAILY Heart Disease/Condition 08/19/19
rivaroxaban 20 mg tablet (Xarelto) 20 mg PO QPM Blood Clot Prevention/Tx 12/10/22
rosuvastatin 20 mg tablet 20 mg PO QPM High Cholesterol 12/10/22
memantine 10 mg tablet 10 mg PO BID Neurological Condition 02/09/24
cyanocobalamin (vitamin B-12) 1,000 mcg tablet 1,000 mcg PO NOON Supplement 03/12/25
ferrous sulfate 325 mg (65 mg iron) tablet 325 mg PO QPM Supplement 03/12/25
omega 5-bsn-csr-fish oil 1,000 mg (120 mg-180 mg) capsule (Fish Oil) 1 cap PO NOON Supplement 03/12/25
omeprazole 20 mg capsule,delayed release 20 mg PO DAILY Gastrointestinal Issue 03/12/25
zinc gluconate 30 mg tablet 30 mg PO NOON Supplement 03/12/25
amiodarone 200 mg tablet 200 mg PO DAILY 30 days #30 tabs 03/16/25
amiodarone 200 mg tablet (Pacerone) 200 mg PO BID 14 days #28 tabs 03/16/25
insulin NPH-regular 70-30 U-100 insulin 100 unit/mL subcutaneous pen (Novolin 70-30 FlexPen U-100 Insulin) 15 unit (0.15 mL) SC BID Diabetes #0 mL 03/16/25
metoprolol succinate 25 mg tablet,extended release 24 hr 25 mg PO DAILY@1600 30 days #30 tabs 03/16/25
metoprolol succinate 50 mg tablet,extended release 24 hr 50 mg PO DAILY 30 days #30 tabs 03/16/25
acetaminophen 325 mg tablet 650 mg (2 x 325 mg) PO HS #0 tabs 03/19/25
cefdinir 300 mg capsule 300 mg PO Q12H 9 days #18 caps 03/19/25
tamsulosin 0.4 mg capsule 0.4 mg PO DAILY 30 days #30 caps 03/19/25
Home Medication Changes
amiodarone 200 mg tablet 200 mg PO DAILY 30 days #30 tabs 03/16/25
amiodarone 200 mg tablet (Pacerone) 200 mg PO BID 14 days #28 tabs 03/16/25
insulin NPH-regular 70-30 U-100 insulin 100 unit/mL subcutaneous pen (Novolin 70-30 FlexPen U-100 Insulin) 15 unit (0.15 mL) SC BID Diabetes #0 mL 03/16/25
metoprolol succinate 25 mg tablet,extended release 24 hr 25 mg PO DAILY@1600 30 days #30 tabs 03/16/25
metoprolol succinate 50 mg tablet,extended release 24 hr 50 mg PO DAILY 30 days #30 tabs 03/16/25
acetaminophen 325 mg tablet 650 mg (2 x 325 mg) PO HS #0 tabs 03/19/25
cefdinir 300 mg capsule 300 mg PO Q12H 9 days #18 caps 03/19/25
tamsulosin 0.4 mg capsule 0.4 mg PO DAILY 30 days #30 caps 03/19/25
Pending Results: No
[2025-03-19] MEDS: FLUZONE HIGH-DOSE 2025-26 0.5 ML IM (11:53)
--- NOTE | 2025-03-20 11:30 | W.HF.CON ---
Heart Failure
- LV Function
Left ventricular function study result: LV Ejection fraction >/= 50%
Ejection Fraction Percentage: 55
- ARNI
Patient already on ARNI: No
Heart Failure ARNI Not Indicated: LV Ejection Fraction >/= 40%
- ACEI/ARB
Patient already on ACEI/ARB: No
Heart Failure ACEI/ARB Not Indicated: LV Ejection Fraction > 40%
- Beta Bandar
Patient already on Evidence Based Beta Bandar: Yes
- Mineralocorticord Receptor Antagonist
Patient already on MRA: No
Heart Failure MRA Not Indicated: LV Ejection Fraction > 40%
- SGLT-2 Inhibitor
Patient already on SGLT-2 Inhibitor: No
Heart Failure SGLT-2 Inhibitor Not Indicated: LV Ejection Fraction >40%
- Afib Anticoagulation
Patient already on Anticoagulation for Afib: Yes
- NYHA CHF Classification
NYHA CHF Classification Level: Class III - Symptoms w/ min exertion, interferes w/ nml daily activity
- ACC/AHA Stage
ACC/AHA Stage: Stage C: Symptomatic Heart Failure
== END 2025-03-19 12:26 | disposition home health service (06) | DRG 871 ==
LOC: 2 NORTH 16:23
PROVIDERS: Clinical Nurse Specialist Family Health; ADMITTING PHYSICIAN Hospitalist; ATTENDING PHYSICIAN Internal Medicine; EMERGENCY PHYSICIAN Emergency Medicine; FAMILY PHYSICIAN Family Medicine; OTHER PHYSICIAN Internal Medicine Cardiovascular Disease
PROC: 3E02340 Introduction of Influenza Vaccine into Muscle, Percutaneous Approach (ICD-10-PCS; 2025-03-16)
DX: A41.89 Other specified sepsis (principal); J18.9 Pneumonia, unspecified organism; J81.0 Acute pulmonary edema; I5A Non-ischemic myocardial injury (non-traumatic); E87.1 Hypo-osmolality and hyponatremia; N17.9 Acute kidney failure, unspecified; R53.1 Weakness; R65.20 Severe sepsis without septic shock; R06.89 Other abnormalities of breathing; E78.00 Pure hypercholesterolemia, unspecified; I50.9 Heart failure, unspecified; I11.0 Hypertensive heart disease with heart failure; K21.9 Gastro-esophageal reflux disease without esophagitis; N40.1 Benign prostatic hyperplasia with lower urinary tract symptoms; R33.8 Other retention of urine; I48.0 Paroxysmal atrial fibrillation; H91.93 Unspecified hearing loss, bilateral; R26.2 Difficulty in walking, not elsewhere classified; I25.10 Atherosclerotic heart disease of native coronary artery without angina pectoris; J30.1 Allergic rhinitis due to pollen; M19.90 Unspecified osteoarthritis, unspecified site; R09.02 Hypoxemia; D50.9 Iron deficiency anemia, unspecified; R47.02 Dysphasia; E11.65 Type 2 diabetes mellitus with hyperglycemia; E87.6 Hypokalemia; W19.XXXA Unspecified fall, initial encounter; Y93.9 Activity, unspecified; Y92.009 Unspecified place in unspecified non-institutional (private) residence as the place of occurrence of the external cause; Z60.2 Problems related to living alone; Z66 Do not resuscitate; Z87.19 Personal history of other diseases of the digestive system; Z82.49 Family history of ischemic heart disease and other diseases of the circulatory system; Z79.84 Long term (current) use of oral hypoglycemic drugs; Z79.899 Other long term (current) drug therapy; Z79.4 Long term (current) use of insulin; Z79.01 Long term (current) use of anticoagulants; Z95.2 Presence of prosthetic heart valve; Z91.018 Allergy to other foods; Z91.010 Allergy to peanuts; Z86.73 Personal history of transient ischemic attack (TIA), and cerebral infarction without residual deficits; Z23 Encounter for immunization; Z11.52 Encounter for screening for COVID-19
CPT/HCPCS: 70450; 71046; 76700; 76770; 80048; 80053; 80061; 81003; 81015; 82248; 82550; 82962; 83036; 83605; 83735; 83880; 84145; 84443; 84484; 85025; 85027; 87040; 87070; 87086; 87205; 87502; 87641; 87811; 90662; 92526; 92610; 93005; 93306; 94761; 96374; 96375; 96376; 97116; 97163; 97530; 99291; G0008

== ENCOUNTER → 2025-03-24 15:48 | Outpatient (REF) | payer MEDICARE, OTHER, SELFPAY ==
[2025-03-24 16:34] LABS: Hematocrit 36.8 % (39.0-52.0); Hemoglobin 11.7 g/dL (13.0-18.0); Mean Corp Hgb Conc. 32.3 g/dL (33.0-37.0); Mean Corpuscular Volume 82.0 fL (80.0-94.0); Platelet Count 112 10^3/uL (130-400); Red Cell Dist. Width 18.9 % (11.5-14.5)
[2025-03-24 16:34] LABS: Blood Urea Nitrogen 23 mg/dl (9-20); Calcium 9.3 mg/dl (8.4-10.2); Carbon Dioxide 26 mmol/L (22-30); Chloride 102 mmol/L (98-107); Glucose 118 mg/dl (70-99); Potassium 4.3 mmol/L (3.5-5.1); Sodium 136 mmol/L (135-145); eGFR 53.17
== END ==
LOC: OLABWIL 15:48
PROVIDERS: ATTENDING PHYSICIAN Family Medicine
DX: I48.0 Paroxysmal atrial fibrillation (principal)
CPT/HCPCS: 80048; 85027

== ENCOUNTER → 2025-04-25 11:15 | Outpatient (REF) | payer MEDICARE, OTHER, SELFPAY ==
[2025-04-25 12:20] LABS: Hematocrit 39.1 % (39.0-52.0); Hemoglobin 12.5 g/dL (13.0-18.0); Mean Corp Hgb Conc. 32.0 g/dL (33.0-37.0); Mean Corpuscular Volume 85.6 fL (80.0-94.0); Nucleated Red Blood Cells % 0 % (-); Platelet Count 134 10^3/uL (130-400); Red Cell Dist. Width 18.6 % (11.5-14.5)
[2025-04-25 13:48] LABS: ALT (SGPT) 15 U/L (0-50); AST (SGOT) 16 U/L (17-59); Albumin 4.6 g/dl (3.5-5.0); Alkaline Phosphatase 54 U/L (38-126); Blood Urea Nitrogen 25 mg/dl (9-20); Calcium 9.8 mg/dl (8.4-10.2); Carbon Dioxide 27 mmol/L (22-30); Chloride 99 mmol/L (98-107); Glucose 310 mg/dl (70-99); Iron 68 ug/dl (49-181); Potassium 4.4 mmol/L (3.5-5.1); Sodium 136 mmol/L (135-145); Total Protein 7.6 g/dl (6.3-8.2); eGFR 58.53
[2025-04-25 13:57] LABS: Total Iron Binding Capacity 382 ug/dl (261-462)
[2025-04-25 14:21] LABS: Ferritin 38.2 ng/ml (17.9-464.0)
[2025-04-25 14:35] LABS: Vitamin B12 409 pg/ml (239-931)
== END ==
LOC: REG 11:15
PROVIDERS: ATTENDING PHYSICIAN Family Medicine
DX: Z01.89 Encounter for other specified special examinations (principal); Z79.899 Other long term (current) drug therapy; R79.9 Abnormal finding of blood chemistry, unspecified; R53.83 Other fatigue; J18.9 Pneumonia, unspecified organism
CPT/HCPCS: 36415; 80053; 82607; 82668; 82728; 83540; 83550; 85025